=== PATIENT | male | born 1990 | race Caucasian/White ===

== ENCOUNTER 2020-06-12 09:33 | Outpatient (REF) | payer OTHER, SELFPAY | END 2020-06-12 09:34 | disposition home or self-care (01) | LOC: HO.HMGCLDS 09:33 | PROVIDERS: PCP Internal Medicine; Visit Provider Internal Medicine | DX: Z20.828 Contact with and (suspected) exposure to other viral communicable diseases (principal) | CPT/HCPCS: C9803; U0003 ==

== ENCOUNTER 2020-07-20 16:30 | Emergency (ER) | payer OTHER, SELFPAY | END 2020-07-20 16:45 | disposition left against medical advice (07) | LOC: HO.ED 16:44 | PROVIDERS: Emergency Provider Emergency Medicine; PCP Internal Medicine | DX: H57.13 Ocular pain, bilateral (principal) ==

== ENCOUNTER 2021-01-10 11:32 | Outpatient (REF) | payer OTHER, SELFPAY | END 2021-01-10 11:33 | disposition home or self-care (01) | LOC: HO.LAB 11:32 | PROVIDERS: PCP Internal Medicine; Visit Provider Internal Medicine | DX: Z20.822 Contact with and (suspected) exposure to COVID-19 (principal) | CPT/HCPCS: C9803; U0003; U0005 ==

== ENCOUNTER 2021-01-25 05:06 | Emergency (ER) | payer OTHER, SELFPAY ==
[2021-01-25 05:18] VITALS: BP 97/69; PULSE 72; RESP 16; TEMP 36.2; O2SAT 96; BMI 19.1
--- NOTE | 2021-01-25 05:25 | ED_ITS ---
HPI - General Adult General Chief complaint: General Medical Stated complaint: dizzy nausea Time Seen by Provider: 01/25/21 05:25 Source: patient Mode of arrival: ambulatory Limitations: no limitations History of Present Illness HPI narrative: patient with no significant past medical history complaining of not feeling well for 1 day nauseated no vomiting or diarrhea feel dizzy generalized weakness patient was tested for COVID which was negative last week no fever no chills no significant cough or shortness of breath . patient feel everything is spinning Related Data Previous Rx's Medication Instructions Recorded loratadine 10 mg tablet 10 mg PO DAILY #90 tab 12/11/20 meclizine 25 mg PO TID PRN #30 tab 01/25/21 Allergies Allergy/AdvReac Type Severity Reaction Status Date / Time No Known Allergies Allergy Verified 01/25/21 05:46 Review of Systems Review of Systems: Constitutional : No Weight loss, No Fever, No Chills ENT/Mouth : No sore throat, No Rhinorrhea Eyes: No Eye Pain, No Swelling Cardiovascular : No Chest Pain, no palpitations Respiratory : No Cough, No Sputum, no shortness of breath Gastrointestinal : + Nausea, No Vomiting, No Diarrhea, No abdominal Pain, no black stools Genitourinary : No Dysuria, No Urinary Frequency Musculoskeletal : No joint pain, No Myalgias, No Joint Swelling Skin : No Skin Lesions, No rash Neuro : No Weakness, No Numbness, ++Dizziness, No Headache Psych : No Anxiety/Panic, No Depression Heme/Lymph: No Bruising, No Lymphadenopathy Endocrine : No Polyuria, No Polydipsia All other systems reviewed and are negative [facility] Social History Social History Patient Tobacco Use Status: Current everyday Tobacco user Use of substances other than those prescribed or required for medical reasons: Yes Substance Use Type: Marijuana Advance Directives: No Advance Directives Information Provided: No Physical Exam Vital Signs: Vital Signs: Last Vital Signs Temp 97.1 F 01/25/21 05:18 Pulse 80 01/25/21 06:41 Resp 16 01/25/21 06:41 BP 97/54 L 01/25/21 06:41 Pulse Ox 99 01/25/21 06:41 Body Mass Index 19.1 Appearance: Alert. Oriented X3. No acute distress. Eyes: PERRLA, No Nystagmus ENT: Pharynx normal. Oral Mucosa moist Neck: Normal inspection. Neck supple. CVS: Normal heart rate and rhythm. Pulses normal. Respiratory: No respiratory distress. Equal air entry bilateral, no wheezing/rales/rhonchi Abdomen: Soft and nontender. Bowel sounds are present, no mass palpable, no CVA tenderness Skin: Skin warm and dry. Normal skin color. Normal skin turgor. Extremities: No lower extremity edema. No calf tenderness Neuro: Oriented X 3. No motor deficit. No sensory deficit.No cerebellar signs , cranial nerves II-XII intact Medical Decision Making MDM Narrative Medical decision making narrative: patient with dizziness clinically benign positional vertigo lab workup is negative patient feels better after medication and IV hydration will discharge patient home on meclizine Lab Data Lab results reviewed: Yes I reviewed the patient's lab results. Result diagrams: 01/25/21 05:41 01/25/21 05:41 Labs: Lab Results 01/25/21 01/25/21 01/25/21 Range/Units 05:33 05:41 05:41 WBC 7.3 (4.8-10.8) X10*3/uL RBC 5.19 (4.60-5.80) X10*6/uL Hgb 15.9 (14.0-18.0) g/dl Hct 45.1 (42-52) % MCV 86.9 (80-98) fL MCH 30.6 (27.0-33.0) pg MCHC 35.3 (31.0-36.0) g/dl RDW 12.7 (11.0-16.0) % Plt Count 193 (160-400) X10*3/uL MPV 11.1 (9.4-12.4) fL Immature Gran % (Auto) 0.1 (0.0-0.4) % Neut % (Auto) 44.2 L (45-73) % Lymph % (Auto) 43.7 H (20-40) % [place] % (Auto) 7.8 (2-11) % Eos % (Auto) 3.8 (0-4) % Baso % (Auto) 0.4 (0-2) % Lymph # (Auto) 3.2 (1.2-4.9) X10*3/uL [place] # (Auto) 0.6 (0.1-1.2) X10*3/uL Eos # (Auto) 0.3 (0.0-0.4) X10*3/uL Baso # (Auto) 0.0 (0.0-0.2) X10*3/uL Abs Immat Gran (auto) 0.01 (0.00-0.03) X10*3/uL Absolute Neuts (auto) 3.2 (2.0-8.3) X10*3/uL Absolute Nucleated RBC 0.000 (0.0-0.012) X10*3/uL Nucleated RBC % (auto) 0.0 (0.0-0.2) /100WBC Sodium 141 (135-145) mmol/L Potassium 4.0 (3.3-5.1) mmol/L Chloride 106 (96-108) mmol/L Carbon Dioxide 27 (22-29) mmol/L Anion Gap 12 (12-20) BUN 8 L (9-16) mg/dL Creatinine 0.81 (0.5-1.4) mg/dL Estim Creat Clear Calc 105.4 Estimated GFR > 60 POC Glucose 89 (60-115) mg/dL Random Glucose 99 (60-115) mg/dL Calcium 9.5 (8.4-10.2) mg/dL Discharge Plan Discharge Clinical Impression: Benign paroxysmal positional vertigo Qualifiers: Laterality: bilateral Qualified Code(s): H81.13 - Benign paroxysmal vertigo, bilateral Patient Disposition: Home, Self-Care Instructions: Benign Paroxysmal Positional Vertigo (ED) Additional Instructions: care as advised. Take meclizine 1 tablet every 8 hours as needed for severe dizziness. Follow up with PCP Prescriptions: New meclizine 25 mg tablet 25 mg PO TID PRN (Reason: dizziness) Qty: 30 RF: 0 No Action loratadine 10 mg tablet 10 mg PO DAILY Qty: 90 RF: 8
[2021-01-25] MEDS: 0.9 % Sodium Chloride 1,000 ML 999 ML IVCONT (05:45)
[2021-01-25] MEDS: ondansetron HCL 4 MG/2 ML VIAL IVPUSH (05:45)
[2021-01-25 05:46] LABS: Basophils Percent Auto 0.4 % (0-2); Eosinophils Absolute Auto 0.3 X10*3/uL (0.0-0.4); Eosinophils Percent Auto 3.8 % (0-4); Hematocrit 45.1 % (42-52); Hemoglobin 15.9 g/dl (14.0-18.0); Imm Gran Abs Auto 0.01 X10*3/uL (0.00-0.03); Imm Gran Pct Auto 0.1 % (0.0-0.4); Lymphocytes Absolute Auto 3.2 X10*3/uL (1.2-4.9); Lymphocytes Percent Auto 43.7 % (20-40); MANUAL DIFF FLAG NO; Mean Corpuscular HGB Conc 35.3 g/dl (31.0-36.0); Mean Corpuscular Hemoglobin 30.6 pg (27.0-33.0); Mean Corpuscular Volume 86.9 fL (80-98); Mean Platelet Volume 11.1 fL (9.4-12.4); Monocytes Absolute Auto 0.6 X10*3/uL (0.1-1.2); Monocytes Percent Auto 7.8 % (2-11); Neutrophils Absolute Auto 3.2 X10*3/uL (2.0-8.3); Neutrophils Percent Auto 44.2 % (45-73); Platelet Count 193 X10*3/uL (160-400); Red Blood Count 5.19 X10*6/uL (4.60-5.80); Red Cell Distribution Width 12.7 % (11.0-16.0); White Blood Count 7.3 X10*3/uL (4.8-10.8)
[2021-01-25 05:46] LABS: Glucose, Whole Blood 89 mg/dL (60-115)
[2021-01-25 06:33] LABS: Anion Gap 12 (12-20); Blood Urea Nitrogen 8 mg/dL (9-16); Calcium 9.5 mg/dL (8.4-10.2); Carbon Dioxide 27 mmol/L (22-29); Chloride 106 mmol/L (96-108); Creatinine Clr Calc Pharmacy 105.4; Estimated Glomerular Filt Rate > 60; Glucose Random 99 mg/dL (60-115); Sodium 141 mmol/L (135-145)
[2021-01-25 06:41] VITALS: BP 97/54; PULSE 80; RESP 16; O2SAT 99
--- NOTE | 2021-01-25 06:42 | PC.NURSE ---
Pt resting on stretcher in NAD, breathing with ease on RA. Pt denies pain/discomfort, denies nausea but continues to c/o dizziness. Pt VSS. Stretcher in low locked position, rails raised, call iglesias within reach.
[2021-01-25] MEDS: Meclizine HCl 25 MG TABLET 50 MG PO (07:10)
== END 2021-01-25 07:16 | disposition home or self-care (01) ==
PROVIDERS: Emergency Provider Internal Medicine; PCP Internal Medicine
DX: H81.13 Benign paroxysmal vertigo, bilateral (principal)
CPT/HCPCS: 36415; 80048; 82947; 85025; 96361; 96374; 99284; J2405

== ENCOUNTER 2021-04-28 18:10 | Emergency (ER) | payer OTHER, SELFPAY ==
[2021-04-28 18:58] VITALS: BP 108/58; PULSE 72; RESP 14; TEMP 37.2; O2SAT 97; BMI 19.5
== END 2021-04-28 21:01 | disposition left against medical advice (07) ==
PROVIDERS: Emergency Provider Emergency Medicine; PCP Internal Medicine
DX: R42 Dizziness and giddiness (principal); R53.1 Weakness; Z79.899 Other long term (current) drug therapy
CPT/HCPCS: 99281; 99282

== ENCOUNTER 2021-07-12 11:55 | Outpatient (REF) | payer OTHER, SELFPAY ==
[2021-07-12 12:08] LABS: MANUAL DIFF FLAG NO
[2021-07-12 12:54] LABS: Basophils Percent Auto 0.5 % (0-2); Eosinophils Absolute Auto 0.3 X10*3/uL (0.0-0.4); Eosinophils Percent Auto 5.4 % (0-4); Hematocrit 46.7 % (42.0-52.0); Hemoglobin 15.8 g/dl (14.0-18.0); Imm Gran Abs Auto 0.01 X10*3/uL (0.00-0.03); Imm Gran Pct Auto 0.2 % (0.0-0.4); Lymphocytes Absolute Auto 2.2 X10*3/uL (1.2-4.9); Lymphocytes Percent Auto 40.1 % (20-40); Mean Corpuscular HGB Conc 33.8 g/dl (31.0-36.0); Mean Corpuscular Hemoglobin 30.2 pg (27.0-33.0); Mean Corpuscular Volume 89.1 fL (80.0-98.0); Mean Platelet Volume 11.3 fL (9.4-12.4); Monocytes Absolute Auto 0.4 X10*3/uL (0.1-1.2); Monocytes Percent Auto 7.7 % (2-11); Neutrophils Absolute Auto 2.6 x10*3/uL (2.0-8.3); Neutrophils Percent Auto 46.1 % (45-73); Platelet Count 189 X10*3/uL (160-400); Red Blood Count 5.24 X10*6/uL (4.60-5.80); Red Cell Distribution Width 12.3 % (11.0-16.0); White Blood Count 5.6 X10*3/uL (4.8-10.8)
[2021-07-12 13:23] LABS: Alanine Aminotransferase 17 U/L (0-40); Albumin Level 4.4 g/dL (3.5-5.0); Alkaline Phosphatase 69 U/L (39-117); Anion Gap 10 (12-20); Aspartate Amino Transferase 17 U/L (5-37); Bilirubin Total 0.6 mg/dL (0.0-1.0); Blood Urea Nitrogen 11 mg/dL (9-16); Calcium 9.7 mg/dL (8.4-10.2); Carbon Dioxide 30 mmol/L (22-29); Chloride 106 mmol/L (96-108); Cholesterol 171 mg/dL; Estimated Glomerular Filt Rate > 60; Glucose Fasting 105 mg/dL (60-99); HDL Cholesterol 46 mg/dL; LDL Cholesterol Calculated 109 mg/dl; Potassium 4.2 mmol/L (3.3-5.1); Sodium 142 mmol/L (135-145); Total Protein 7.1 g/dL (6.5-8.0); Triglycerides 83 mg/dL
== END 2021-07-12 11:56 | disposition home or self-care (01) ==
LOC: HO.LAB 11:55
PROVIDERS: PCP Internal Medicine; Visit Provider Internal Medicine
DX: Z00.00 Encounter for general adult medical examination without abnormal findings (principal); Z13.0 Encounter for screening for diseases of the blood and blood-forming organs and certain disorders involving the immune mechanism
CPT/HCPCS: 36415; 80053; 80061; 85025

== ENCOUNTER 2021-07-22 10:41 | Emergency (ER) | payer OTHER, SELFPAY ==
[2021-07-22 11:21] VITALS: BP 96/56; PULSE 101; RESP 20; TEMP 37.1; O2SAT 96; BMI 20.3
[2021-07-22 12:19] LABS: COVID-19 Test Negative (Negative)
[2021-07-22 15:26] VITALS: BP 109/61; PULSE 78; RESP 16; TEMP 36.8; O2SAT 97
[2021-07-22] MEDS: Acetaminophen 325 MG TABLET 650 MG PO (16:15)
--- NOTE | 2021-07-22 16:50 | ED.GENADULT ---
HPI - General Adult General Chief complaint: Upper Respiratory Symptoms Stated complaint: headache,body aches,dizzy Time Seen by Provider: 07/22/21 15:37 History of Present Illness HPI narrative: Patient complains of mild headache body aches felt dizzy earlier but no dizziness now no chest pain no shortness of breath no fever Related Data Previous Rx's Medication Instructions Recorded loratadine 10 mg tablet 10 mg PO DAILY #90 tab 12/11/20 meclizine 25 mg tablet 25 mg PO TID PRN #30 tab 04/26/21 Allergies Allergy/AdvReac Type Severity Reaction Status Date / Time No Known Allergies Allergy Verified 07/22/21 11:21 Review of Systems Review of Systems: Positive for runny nose body aches headache resolved dizziness Negatives are no fever no chills no chest pain no shortness of breath no fainting no feeling faint no difficulty breathing or swallowing no abdominal pain no nausea vomiting or diarrhea Yes all other systems are reviewed and are negative PMFSH Past Medical History Source: nursing notes reviewed Medical History (Updated 07/23/21 @ 00:01 by Jeovany David) Vertigo Surgical History History of appendectomy History of inguinal hernia repair Family History Family History (Updated 07/09/21 @ 13:44 by YIN Butler) Mother No problems noted. Father Mental health disorder Substance use disorder Social History Social History Housing: Apartment Patient Tobacco Use Status: Current everyday Tobacco user Tobacco use type: Cigarette Cigarettes Per Day: 7 e-Cigarette/Vaping Use: Never Used Second Hand Smoke Exposure: No Substance Use Type: Marijuana Advance Directives: No Advance Directives Information Provided: Yes Current occupational status: unemployed Cognitive needs: No Hearing needs: No Vision needs: No Physical Exam Vital Signs: Vital Signs: Last Vital Signs Temp 98.2 F 07/22/21 15:26 Pulse 78 07/22/21 15:26 Resp 16 07/22/21 15:26 BP 109/61 07/22/21 15:26 Pulse Ox 97 07/22/21 15:26 BMI result Body Mass Index 20.3 General appearance is no acute distress Eyes no redness no discharge The sinuses nontender The neck is supple The chest is clear to auscultation bilateral Extremities full range of motion x4 Course Course Course Narrative: Well-appearing patient with a resolved episode of dizziness at home, no dizziness here no faintness or feeling faint no shortness of breath no chest pain, eating and drinking normally, negative COVID test today is discharged Medical Decision Making Lab Data Labs: Lab Results 07/22/21 Range/Units 11:25 COVID-19 (MOHSEN) Negative (Negative) COVID-19 Clin Com See Note Discharge Plan Discharge Clinical Impression: Acute viral syndrome Patient Disposition: Home, Self-Care Additional Instructions: Your COVID test was negative You are very well appearing and her physical exam and vital signs were okay Drink plenty of fluids, Tylenol or Motrin as needed Return any time any worse condition or any concerns Prescriptions: No Action loratadine 10 mg tablet 10 mg PO DAILY Qty: 90 RF: 8 meclizine 25 mg tablet 25 mg PO TID PRN (Reason: dizziness) Qty: 30 RF: 0 Interventions: ED Discharge Assessment Last Done: 07/22/21 17:05 Discharge Date/Time: 07/22/21 17:05
== END 2021-07-22 17:05 | disposition home or self-care (01) ==
PROVIDERS: Emergency Provider Emergency Medicine; PCP Internal Medicine
DX: B34.9 Viral infection, unspecified (principal); Z20.822 Contact with and (suspected) exposure to COVID-19
CPT/HCPCS: 36415; 87635; 99283; 99284

== ENCOUNTER 2021-11-12 14:16 | Emergency (ER) | payer OTHER, SELFPAY ==
[2021-11-12 14:22] VITALS: BP 109/60; PULSE 82; RESP 18; TEMP 37.1; O2SAT 97; BMI 19.5
--- NOTE | 2021-11-12 15:25 | ED.GENADULT ---
HPI - General Adult General Chief complaint: General Medical Stated complaint: nausea body aches Time Seen by Provider: 11/12/21 15:25 Source: patient Mode of arrival: ambulatory Limitations: no limitations History of Present Illness HPI narrative: Patient is a 31 year old male presenting to the emergency department today feeling generally unwell. Patient states that since yesterday he has felt generally unwell and run down. Patient denies any dizziness, lightheadedness, abdominal pain, nausea, vomiting, blurry vision, double vision, loss of vision, chest pain, difficulty breathing, shortness of breath, back pain, night sweats, pain with urination, increased urinary frequency, increased urinary urgency, blood in his urine or stool, syncope or a near syncopal episode, recent trauma or falls, bowel incontinence, bladder incontinence, bowel retention, bladder retention, or any other complaints at this time. Onset (ago): day(s) (1) Severity: mild Severity scale (1-10): 3 Quality: dull Pain Consistency: constant Relieving factors: none Exacerbating factors: none Associated symptoms: fever/chills Treatments prior to arrival: none Related Data Previous Rx's Medication Instructions Recorded loratadine 10 mg tablet 10 mg PO DAILY #90 tab 12/11/20 meclizine 25 mg tablet 25 mg PO TID PRN #30 tab 04/26/21 cephalexin 250 mg capsule 250 mg PO Q6H #20 cap 08/24/21 Allergies Allergy/AdvReac Type Severity Reaction Status Date / Time No Known Allergies Allergy Verified 11/12/21 14:22 Review of Systems Constitutional: Constitutional: Reports no additional constitutional complaints, Reports body ache(s), Reports chills, Reports fever(s) and Denies night sweats Eyes: Eyes: Reports no additional eye complaints, Denies blurry vision, Denies change in vision, Denies diplopia, Denies eye discharge, Denies loss of vision and Denies eye pain ENT: Denies dizziness Cardiovascular: Cardiovascular: Reports no additional cardiovascular complaints, Denies chest pain, Denies lightheadedness, Denies Loss of Consciousness and Denies dyspnea Respiratory: Respiratory: Reports no additional respiratory complaints and Denies dyspnea Gastrointestinal: Gastrointestinal: Reports no additional gastrointestinal complaints, Denies abdominal pain, Denies melena, Denies hematochezia, Denies change in bowel habits and Denies change in stool character Genitourinary: Genitourinary: Reports no additional male genitourinary complaints, Denies hematuria, Denies oliguria, Denies difficulty urinating, Denies dysuria, Denies urinary frequency, Denies urinary hesitancy, Denies urinary incontinence and Denies urinary urgency Musculoskeletal: Musculoskeletal: Reports no additional musculoskeletal complaints, Denies numbness and Denies tingling Neurologic: Denies dizziness, Denies loss of vision, Denies numbness and Denies tingling Psychiatric: Psychiatric: Reports no additional psychiatric complaints Endocrine: Endocrine: Reports no additional endocrine complaints Hematologic/Lymphatic: Hematologic/Lymphatic: Reports no additional hematologic/lymphatic complaints Allergic/Immunologic: Allergic/Immunologic: Reports no additional allergic/immunologic complaints [facility] Past Medical History Attestation statement: The following information was validated with the patient. Source: old records reviewed Medical History Vertigo Surgical History History of appendectomy History of inguinal hernia repair Family History Family History Mother No problems noted. Father Mental health disorder Substance use disorder Social History Social History Housing: Apartment Patient Tobacco Use Status: Current everyday Tobacco user Tobacco use type: Cigarette Cigarettes Per Day: 5 e-Cigarette/Vaping Use: Never Used Second Hand Smoke Exposure: No Substance Use Type: Marijuana Advance Directives: No Advance Directives Information Provided: No service: No Current occupational status: unemployed Cognitive needs: No Hearing needs: No Vision needs: No Physical Exam ED Vital Signs: Vital Signs - 24 hr 11/12/21 14:22 Temperature 98.7 F Pulse Rate 82 Respiratory Rate 18 Blood Pressure 109/60 Pulse Oximetry 97 BMI result Body Mass Index 19.5 Const General: cooperative, no acute distress, alert and awake Nutritional Appearance: well nourished Orientation/consciousness: patient oriented x3 Limitations: no limitations HENMT Head: Yes normal to inspection and Yes atraumatic Ears: hearing grossly normal bilaterally and external ears normal General nose exam: Normal external nose present, no nasal discharge noted and no epistaxis Face and sinus: Yes normal facial exam, No abrasion and No laceration Mouth: Normal oral and palatal mucosa present, no drooling and no muffled voice Eyes General: appearance normal, both eyes and all related structures Periorbital: periorbital findings normal Eyelids: Yes eyelids normal Conjunctivae: conjunctivae normal Pupils: Equal, round and reactive pupils present EOM: EOMs intact bilaterally Neck Neck: Yes normal visual inspection, Yes full ROM and Yes no lymphadenopathy Chest Chest palpation & inspection: normal inspection of the chest Resp Effort & Inspection: normal respiratory effort and able to speak in complete sentences Auscultation: clear to auscultation bilaterally Cardio Rate: regular rate Rhythm: regular rhythm GI Inspection: Yes normal to inspection Neuro General: patient oriented x3 and moves all extremities Cranial nerves: Yes Equal, round and reactive pupils present Cognition (Neuro): normal cognition Motor exam (neuro): 5/5 motor strength present throughout Sensory Exam: Normal double simultaneous stimulation for sensation Coordination: [id number] test normal Extrem General: Yes normal to inspection, Yes full ROM and Yes capillary refill normal Psych Appearance: grossly normal Mental Status: mental status grossly normal Affect: normal affect Attitude: cooperative Thought process: Normal thought process present Thought content: Normal thought content present Insight: Good insight present (Psych) Medical Decision Making MDM Narrative Medical decision making narrative: Patient is a 31 year old male presenting to the emergency department today feeling generally unwell. Patient's physical exam was unremarkable. Patient's rapid Influenza was positive. I explained my physical exam findings as well as all test results to the patient. I answered all questions asked by the patient. I stressed the importance of the patient taking his medication as prescribed. I stressed the importance of the patient following up with his primary care provider. I stressed the importance of the patient returning to the emergency department immediately if his symptoms were to worsen or if he were to develop any dizziness, shortness of breath, difficulty breathing, chest pain, blurry vision, loss of vision, nausea, vomiting, abdominal pain, fever, chills, back pain, or any other complaints. Patient verbalized agreement and understanding with this treatment plan and discharge. Differential Diagnosis Differential Diagnosis: viral illness, influenza, COVID-19 Medical Records Medical records reviewed: Yes I reviewed the patient's medical records. Lab Data Lab results reviewed: Yes I reviewed the patient's lab results. Labs: Lab Results 11/12/21 11/12/21 Range/Units 15:24 15:24 COVID-19 (MOHSEN) Negative (Negative) COVID-19 Clin Com See Note Influenza Type A (UZAIR) Positive A (Negative) Influenza Type B (UZAIR) Negative (Negative) Influenza A & B Note See Note Discharge Plan Discharge Clinical Impression: Influenza Patient Disposition: Home, Self-Care Instructions: Influenza (DC) Additional Instructions: Take Tylenol or Ibuprofen to help combat body aches and fever. Follow up with your primary care provider. Return to the emergency department immediately if your symptoms worsen or if you develop any dizziness, shortness of breath, difficulty breathing, chest pain, blurry vision, loss of vision, nausea, vomiting, abdominal pain, fever, chills, back pain, or any other complaints. Prescriptions: No Action loratadine 10 mg tablet 10 mg PO DAILY Qty: 90 8RF meclizine 25 mg tablet 25 mg PO TID PRN (Reason: dizziness) Qty: 30 0RF cephalexin 250 mg capsule 250 mg PO Q6H Qty: 20 0RF Referrals: Ignacio Hurley MD [Primary Care Provider] - (Follow up with your PCP. ) Stand Alone Forms: Work/School Release Print Language: Icelandic
[2021-11-12 16:02] LABS: IDNOW Serial# 55D5AD1C
[2021-11-12 16:03] LABS: COVID-19 Test Negative (Negative); IDNOW Serial# 16C4AD1C; Influenza A Positive (Negative); Influenza B2 Negative (Negative)
[2021-11-12 18:43] LABS: Strep A Nucleic Acid Negative (Negative)
== END 2021-11-12 16:12 | disposition home or self-care (01) ==
PROVIDERS: Emergency Provider Emergency Medicine; PCP Internal Medicine
DX: J10.1 Influenza due to other identified influenza virus with other respiratory manifestations (principal); M79.10 Myalgia, unspecified site; F17.210 Nicotine dependence, cigarettes, uncomplicated; Z20.822 Contact with and (suspected) exposure to COVID-19; Z79.899 Other long term (current) drug therapy; Z71.6 Tobacco abuse counseling
CPT/HCPCS: 36415; 87502; 87635; 87651; 99283

== ENCOUNTER 2022-02-27 11:20 | Outpatient (REF) | payer OTHER, SELFPAY | END 2022-02-27 11:21 | disposition home or self-care (01) | LOC: HO.LAB 11:20 | PROVIDERS: PCP Internal Medicine; Visit Provider Internal Medicine | DX: N39.0 Urinary tract infection, site not specified (principal) | CPT/HCPCS: 87086 ==

== ENCOUNTER 2022-07-16 22:48 | Emergency (ER) | payer OTHER, SELFPAY ==
--- NOTE | ~2022-07-16 | XR_ITS ---
EXAMINATION: 1. LEFT ANKLE. 2. LEFT FOOT. CLINICAL INFORMATION: Left ankle pain. Foot pain. COMPARISON: None TECHNIQUE: 1. Left ankle. 4 views 2. Left foot. 3 views. FINDINGS: 1. Left ankle. No fracture. No dislocation. Ankle mortise is congruent. No soft tissue abnormality. 2. Left foot. No fracture. No dislocation. Bone and joint are normal. No soft tissue abnormality. XR/XR ankle LT min 3V IMPRESSION: 1. Left ankle. Normal. 2. Left foot. Normal.
--- NOTE | ~2022-07-16 | XR_ITS ---
EXAMINATION: 1. LEFT ANKLE. 2. LEFT FOOT. CLINICAL INFORMATION: Left ankle pain. Foot pain. COMPARISON: None TECHNIQUE: 1. Left ankle. 4 views 2. Left foot. 3 views. FINDINGS: 1. Left ankle. No fracture. No dislocation. Ankle mortise is congruent. No soft tissue abnormality. 2. Left foot. No fracture. No dislocation. Bone and joint are normal. No soft tissue abnormality. XR/XR foot LT 2V IMPRESSION: 1. Left ankle. Normal. 2. Left foot. Normal.
--- NOTE | 2022-07-16 23:01 | ED_ITS ---
HPI - Extremity Problem General Chief complaint: Extremity Injury, Lower <KRUPA Rivera - Last Filed: 07/16/22 23:02> Stated complaint: thinks broke foot <KRUPA Rivera - Last Filed: 07/16/22 23:02> Time Seen by Provider: 07/17/22 00:43 <KRUPA Rivera - Last Filed: 07/16/22 23:02> Source: patient <Thalia Shelby NP - Last Filed: 07/17/22 02:02> Mode of arrival: ambulatory <Thalia Shelby NP - Last Filed: 07/17/22 02:02> Limitations: no limitations <Thalia Shelby NP - Last Filed: 07/17/22 02:02> History of Present Illness HPI Narrative: 32-year-old male presents for left foot pain that started today after standing. He states that this pain radiates from the bottom of the foot to his ankle. He does not describe any injury and has no swelling or bruising <Thalia Shelby NP - Last Filed: 07/17/22 02:02> MD Complaint: extremity pain <Thalia Shelby NP - Last Filed: 07/17/22 02:02> Onset (ago): hour(s) (Hours prior to arrival) <Thalia Shelby NP - Last Filed: 07/17/22 02:02> Pain Consistency: constant <Thalia Shelby NP - Last Filed: 07/17/22 02:02> Location: left and lower extremity <Thalia Shelby NP - Last Filed: 07/17/22 02:02> Severity scale (1-10): 10 <Thalia Shelby NP - Last Filed: 07/17/22 02:02> Quality: aching <Thalia Shelby NP - Last Filed: 07/17/22 02:02> Relieving factors: nothing <Thalia Shelby NP - Last Filed: 07/17/22 02:02> Exacerbating factors: range of motion, weight bearing, walking and palpation <Thalia Shelby NP - Last Filed: 07/17/22 02:02> Associated symptoms: denies other symptoms <Thalia Shelby NP - Last Filed: 07/17/22 02:02> Related Data Home medications: Previous Rx's Medication Instructions Recorded loratadine 10 mg tablet 10 mg PO DAILY #90 tabs 12/11/20 meclizine 25 mg tablet 25 mg PO TID PRN dizziness #30 tabs 04/26/21 <KRUPA Rivera - Last Filed: 07/16/22 23:02> Allergies/Adverse reactions: Allergies Allergy/AdvReac Type Severity Reaction Status Date / Time No Known Allergies Allergy Verified 07/10/22 13:08 <KRUPA Rivera - Last Filed: 07/16/22 23:02> Review of Systems Review of Systems: Constitutional: No Fever, No Chills Cardiovascular: No Chest Pain, No SOB Respiratory: No Cough, No Dyspnea Gastrointestinal: No Nausea, No Vomiting, No Diarrhea, No abdominal Pain Musculoskeletal: positive left ankle pain, No Myalgias, No Joint Swelling Skin: No Skin lacerations, No rash Neuro: No Weakness, No Numbness, No Paresthesias <Thalia Shelby NP - Last Filed: 07/17/22 02:02> Yes all other systems are reviewed and are negative <Thalia Shelby NP - Last Filed: 07/17/22 02:02> [facility] Past Medical History Attestation statement: The following information was validated with the patient. <Thalia Shelby NP - Last Filed: 07/17/22 02:02> Medical History: Medical History Vertigo <KRUPA Rivera - Last Filed: 07/16/22 23:02> Surgical History: Surgical History History of appendectomy History of inguinal hernia repair <KRUPA Rivera - Last Filed: 07/16/22 23:02> Family History Family History: Family History Mother No problems noted. Father Mental health disorder Substance use disorder <KRUPA Rivera - Last Filed: 07/16/22 23:02> Social History Social History: Social History Housing: Apartment Patient Tobacco Use Status: Current everyday Tobacco user Tobacco use type: Cigarette Cigarettes Per Day: 5 e-Cigarette/Vaping Use: Never Used Second Hand Smoke Exposure: No Substance Use Type: Marijuana Advance Directives: No Advance Directives Information Provided: Yes service: No Current occupational status: unemployed Cognitive needs: No Hearing needs: No Vision needs: No <KRUPA Rivera - Last Filed: 07/16/22 23:02> Physical Exam Vital Signs: Vital Signs: Last Vital Signs Temp 98.1 F 07/16/22 23:02 Pulse 80 07/16/22 23:02 Resp 18 07/16/22 23:02 BP 111/65 07/16/22 23:02 BMI result Body Mass Index 18.8 <KRUPA Rivera - Last Filed: 07/16/22 23:02> Vital Signs: Last Vital Signs Temp 98.1 F 07/16/22 23:02 Pulse 80 07/16/22 23:02 Resp 18 07/16/22 23:02 BP 111/65 07/16/22 23:02 BMI result Body Mass Index 18.8 <hTalia Shelby NP - Last Filed: 07/17/22 02:02> Appearance: Alert. Oriented X3. No acute distress. Eyes: Pupils equal, round and reactive to light. ENT: Pharynx normal. Neck: Normal inspection. Neck supple. CVS: Normal heart rate and rhythm. Pulses normal. Respiratory: No respiratory distress. Breath sounds normal. Abdomen: Soft and nontender. Skin: Skin warm and dry. Normal skin color. Normal skin turgor. Extremities: No bruising swelling or visual abnormality to the left foot. Diffusely tender to the entire foot and ankle. Neuro: No motor deficit. No sensory deficit. Cranial nerves 2-12 intact. <Thalia Shelby NP - Last Filed: 07/17/22 02:02> Course Course Course Narrative: 2300 32 year old male presents w/ severe left foot pain patient tells me he was just standing there and heard a crack followed by severe pain and swelling. No reported trauma. Pain 10/10. having difficulties walking. No hx of osteoperosis. Denies numbness tingling PE pain with palpation throughout entire foot, NV intact Plan- imaging <KRUPA Rivera - Last Filed: 07/16/22 23:02> 2300 32 year old male presents w/ severe left foot pain patient tells me he was just standing there and heard a crack followed by severe pain and swelling. No reported trauma. Pain 10/10. having difficulties walking. No hx of osteoperosis. Denies numbness tingling PE pain with palpation throughout entire foot, NV intact Plan- imaging 32-year-old male presents with left foot pain that started suddenly while he was standing. Physical exam indicates diffuse pain throughout his entire foot with minimal palpation. Patient states to have 10/10 pain with just the lightest touch. He does not have any bruising, erythema, or malformations to the foot. He has brisk capillary refill and equal pulses. Imaging completed while he was in the emergency department waiting room which was negative for acute findings requiring emergent intervention. The pain reported is out of proportion to the description of injury. I placed the patient in Kendall wrap and crutches, patient requested a work note. He did refer patient back to his primary care physician. Patient verbalized understanding of and agrees plan of care discharge home. Verbalized understanding of signs and symptoms indicating need for emergent intervention. <Thalia Shelby NP - Last Filed: 07/17/22 02:02> Medical Decision Making Differential Diagnosis Differential Diagnoses: The differential diagnosis associated with the presentation includes <Thalia Shelby NP - Last Filed: 07/17/22 02:02> Fracture, dislocation, effusion, tendon and ligament injury <Thalia Shelby NP - Last Filed: 07/17/22 02:02> Independent Interpretation I performed an independent interpretation of an: Plain X-Ray <Thalia Shelby NP - Last Filed: 07/17/22 02:02> Radiology Impression Discussion of test interpretation with radiology: I have reviewed the radiologist's reading. <Thalia Shelby NP - Last Filed: 07/17/22 02:02> Radiologist Impression: EXAMINATION: 1. LEFT ANKLE. 2. LEFT FOOT. CLINICAL INFORMATION: Left ankle pain. Foot pain.? COMPARISON: None? TECHNIQUE: 1. Left ankle. 4 views 2. Left foot. 3 views.? FINDINGS: 1. Left ankle. No fracture. No dislocation. Ankle mortise is congruent. No soft tissue abnormality. 2. Left foot. No fracture. No dislocation. Bone and joint are normal. No soft tissue abnormality.? XR/XR foot LT 2V IMPRESSION: 1.? Left ankle. Normal. 2.? Left foot. Normal. <Thalia Shelby NP - Last Filed: 07/17/22 02:02> Discharge Plan Discharge Clinical Impression: Ankle sprain and strain <KRUPA Rivera - Last Filed: 07/16/22 23:02> Patient Disposition: Home, Self-Care <KRUPA Rivera - Last Filed: 07/16/22 23:02> Instructions: Crutch Instructions (ED), R.I.C.E. Treatment (ED), Ankle Strain (ED) <KRUPA Rivera - Last Filed: 07/16/22 23:02> Additional Instructions: You were evaluated for left foot pain. X-rays are negative for acute findings requiring emergent intervention. Your injuries are consistent with a sprain. Please use Kendall wrap as needed for comfort. Use crutches as needed for ambulation. Follow-up with primary care physician for further evaluation. Alternate Tylenol 650 mg every 6 hours and Motrin 600 mg every 6 hours as needed for pain management. Write down what time you take these medications to prevent accidental overdose. Rest ice and elevate the extremity. Thank you for choosing this emergency department for evaluation. Please follow-up with primary care physician as needed. Return to the emergency department for any new, concerning, or worsening symptoms. <KRUPA Rivera - Last Filed: 07/16/22 23:02> Prescriptions: No Action loratadine 10 mg tablet 10 mg PO DAILY Qty: 90 8RF meclizine 25 mg tablet 25 mg PO TID PRN (Reason: dizziness) Qty: 30 0RF <KRUPA Rivera - Last Filed: 07/16/22 23:02> Stand Alone Forms: Work/School Release <KRUPA Rivera - Last Filed: 07/16/22 23:02> Interventions: ED Discharge Assessment Last Done: 07/17/22 00:57 <KRUPA Rivera - Last Filed: 07/16/22 23:02> Discharge Date/Time: 07/17/22 00:58 <KRUPA Rivera - Last Filed: 07/16/22 23:02>
[2022-07-16 23:02] VITALS: BP 111/65; PULSE 80; RESP 18; TEMP 36.7; BMI 18.8
--- NOTE | 2022-07-17 00:42 | ED_ITS ---
HPI - Extremity Injury (Lower) General Chief Complaint: Extremity Injury, Lower Stated Complaint: thinks broke foot Time Seen by Provider: 07/17/22 00:43 Source: patient Limitations: no limitations History of Present Illness MD complaint: ankle injury and foot injury Related Data Previous Rx's Medication Instructions Recorded loratadine 10 mg tablet 10 mg PO DAILY #90 tabs 12/11/20 meclizine 25 mg tablet 25 mg PO TID PRN dizziness #30 tabs 04/26/21 Allergies Allergy/AdvReac Type Severity Reaction Status Date / Time No Known Allergies Allergy Verified 07/10/22 13:08 [facility] Past Medical History Medical History Vertigo Surgical History History of appendectomy History of inguinal hernia repair Family History Family History Mother No problems noted. Father Mental health disorder Substance use disorder Social History Social History Housing: Apartment Patient Tobacco Use Status: Current everyday Tobacco user Tobacco use type: Cigarette Cigarettes Per Day: 5 e-Cigarette/Vaping Use: Never Used Second Hand Smoke Exposure: No Substance Use Type: Marijuana Advance Directives: No Advance Directives Information Provided: Yes service: No Current occupational status: unemployed Cognitive needs: No Hearing needs: No Vision needs: No Physical Exam Vital Signs: Vital Signs: Last Vital Signs Temp 98.1 F 07/16/22 23:02 Pulse 80 07/16/22 23:02 Resp 18 07/16/22 23:02 BP 111/65 07/16/22 23:02 BMI result Body Mass Index 18.8 Medical Decision Making Differential Diagnosis Differential Diagnoses: The differential diagnosis associated with the presentation includes Fracture, dislocation, effusion, tendon and ligament injury Independent Interpretation I performed an independent interpretation of an: Plain X-Ray Radiology Impression Discussion of test interpretation with radiology: I have reviewed the radiologist's reading. Radiologist Impression: EXAMINATION: 1. LEFT ANKLE. 2. LEFT FOOT. CLINICAL INFORMATION: Left ankle pain. Foot pain.? COMPARISON: None? TECHNIQUE: 1. Left ankle. 4 views 2. Left foot. 3 views.? FINDINGS: 1. Left ankle. No fracture. No dislocation. Ankle mortise is congruent. No soft tissue abnormality. 2. Left foot. No fracture. No dislocation. Bone and joint are normal. No soft tissue abnormality.? XR/XR foot LT 2V IMPRESSION: 1.? Left ankle. Normal. 2.? Left foot. Normal. Discharge Plan Discharge Clinical Impression: Ankle sprain and strain Patient Disposition: Home, Self-Care Instructions: Crutch Instructions (ED), R.I.C.E. Treatment (ED), Ankle Strain (ED) Prescriptions: No Action loratadine 10 mg tablet 10 mg PO DAILY Qty: 90 8RF meclizine 25 mg tablet 25 mg PO TID PRN (Reason: dizziness) Qty: 30 0RF Stand Alone Forms: Work/School Release
== END 2022-07-17 00:58 | disposition home or self-care (01) ==
PROVIDERS: Emergency Provider Emergency Medicine; PCP Internal Medicine
DX: S93.402A Sprain of unspecified ligament of left ankle, initial encounter (principal); M25.572 Pain in left ankle and joints of left foot; X50.1XXA Overexertion from prolonged static or awkward postures, initial encounter; Y93.9 Activity, unspecified; Y92.9 Unspecified place or not applicable; Y99.9 Unspecified external cause status; Z79.899 Other long term (current) drug therapy; F17.210 Nicotine dependence, cigarettes, uncomplicated; Z71.6 Tobacco abuse counseling
CPT/HCPCS: 73610; 73620; 99282; 99283

== ENCOUNTER 2022-08-06 12:35 | Outpatient (REF) | payer OTHER, SELFPAY ==
[2022-08-06 12:50] LABS: MANUAL DIFF FLAG NO
[2022-08-06 13:11] LABS: Basophils Percent Auto 0.3 % (0-2); Eosinophils Absolute Auto 0.2 X10*3/uL (0.0-0.4); Eosinophils Percent Auto 2.5 % (0-4); Hematocrit 44.5 % (42.0-52.0); Hemoglobin 15.5 g/dl (14.0-18.0); Imm Gran Abs Auto 0.02 X10*3/uL (0.00-0.03); Imm Gran Pct Auto 0.3 % (0.0-0.4); Lymphocytes Absolute Auto 1.7 X10*3/uL (1.2-4.9); Lymphocytes Percent Auto 28.6 % (20-40); Mean Corpuscular HGB Conc 34.8 g/dl (31.0-36.0); Mean Platelet Volume 10.7 fL (9.4-12.4); Monocytes Absolute Auto 0.4 X10*3/uL (0.1-1.2); Monocytes Percent Auto 6.1 % (2-11); Neutrophils Absolute Auto 3.8 x10*3/uL (2.0-8.3); Neutrophils Percent Auto 62.2 % (45-73); Platelet Count 222 X10*3/uL (160-400); Red Cell Distribution Width 12.6 % (11.0-16.0); White Blood Count 6.1 X10*3/uL (4.8-10.8)
[2022-08-06 13:23] LABS: Appearance Urine Clear; Color Urine Yellow; Glucose Urine UA Negative (Negative); Leukocyte Esterase Urine Negative (Negative); Nitrite Urine Negative (Negative); Specific Gravity - Urine <= 1.005 (1.005-1.025); Urine Blood Negative (Negative); Urine Ketones Negative (Negative); Urine Protein Negative (Neg-Trace)
[2022-08-06 14:31] LABS: Alanine Aminotransferase 15 U/L (0-40); Albumin Level 4.5 g/dL (3.5-5.0); Alkaline Phosphatase 82 U/L (39-117); Anion Gap 13 (12-20); Aspartate Amino Transferase 15 U/L (5-37); Bilirubin Total 0.3 mg/dL (0.0-1.0); Blood Urea Nitrogen 6 mg/dL (9-16); Calcium 9.9 mg/dL (8.4-10.2); Carbon Dioxide 31 mmol/L (22-29); Chloride 103 mmol/L (96-108); Cholesterol 164 mg/dL; Estimated Glomerular Filt Rate > 60; Glucose Fasting 97 mg/dL (60-99); HDL Cholesterol 52 mg/dL; LDL Cholesterol Calculated 93 mg/dl; Sodium 143 mmol/L (135-145); Total Protein 7.6 g/dL (6.5-8.0); Triglycerides 95 mg/dL
[2022-08-08 15:22] LABS: Venous Lead <1.0 mcg/dL (<3.5)
== END 2022-08-06 12:36 | disposition home or self-care (01) ==
LOC: HO.LAB 12:35
PROVIDERS: PCP Internal Medicine; Visit Provider Internal Medicine
DX: Z13.9 Encounter for screening, unspecified (principal); Z77.011 Contact with and (suspected) exposure to lead; E78.5 Hyperlipidemia, unspecified; N39.0 Urinary tract infection, site not specified
CPT/HCPCS: 36415; 80053; 80061; 81003; 83655; 85025

== ENCOUNTER 2022-10-26 13:25 | Outpatient (REF) | payer OTHER, SELFPAY ==
[2022-10-26 16:01] LABS: Influenza A PCR NEGATIVE (Negative); Influenza B PCR NEGATIVE (Negative); Resp Syncy Virus RNA Qual PCR NEGATIVE (Negative); SARS COV2 PCR INHOUSE NEGATIVE (Negative)
[2022-10-26 16:33] LABS: Monotest Negative (Negative)
== END 2022-10-26 13:26 | disposition home or self-care (01) ==
LOC: HO.HMGCLDS 13:25
PROVIDERS: PCP Internal Medicine; Visit Provider Physician Assistant Medical
DX: Z20.828 Contact with and (suspected) exposure to other viral communicable diseases (principal); R09.89 Other specified symptoms and signs involving the circulatory and respiratory systems
CPT/HCPCS: 0241U; 36415; 86308

== ENCOUNTER 2022-10-26 14:05 | Outpatient (REF) | payer OTHER, SELFPAY | END 2022-10-26 14:06 | disposition home or self-care (01) | LOC: HO.LAB 14:05 | PROVIDERS: Visit Provider Physician Assistant Medical | DX: Z13.89 Encounter for screening for other disorder (principal) ==

== ENCOUNTER 2022-12-27 11:07 | Outpatient (REF) | payer OTHER, SELFPAY ==
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
== END 2022-12-27 11:08 | disposition home or self-care (01) ==
LOC: HO.XRAY 11:07
PROVIDERS: PCP Internal Medicine; Visit Provider Internal Medicine
DX: M54.2 Cervicalgia (principal); M54.9 Dorsalgia, unspecified
CPT/HCPCS: 72040; 72100

== ENCOUNTER 2023-02-14 14:13 | Outpatient (AMB) | payer OTHER, SELFPAY ==
--- NOTE | 2023-02-14 14:15 | A.OFFPC_ITS ---
Vital Signs 02/14/23 14:17 Height 5 ft 7 in Weight 124 lb 4 oz BMI 19.5 BP 120/70 Blood Pressure Location Lt brachial Position Sitting Pulse 65 Pulse Source Pulse Oximeter Pulse Oximetry (%) 98 Oxygen Delivery Method Room Air Intake Visit Reasons: Sinus infection for the past 3 weeks? Intake Note: Patient is here today for sinus infection for the past 3 weeks. Symptoms of throat pain, leaking of ears, headaches, body aches and weakness. Cooker Soda Required: No Procurement Accountant: Not Required per policy Accompanied by: Self / Same As Patient Allergies No Known Allergies Allergy (Verified 02/14/23 14:16) Tobacco use date assessed: 02/14/23 Dental Screening Dental Screen Date: 02/14/23 Did you have a dental visit in the last 12 months?: No Did you have a dental problem in the last 6 months where you did not have access to dental care?: No Was dental information given to patient?: No HPI Sinus infection for the past 3 weeks? HPI Details sinus pressure for 2 weeks PFSH Medical History Vertigo Surgical History History of appendectomy History of inguinal hernia repair Family History Mother No problems noted. Father Mental health disorder Substance use disorder Social History Housing: Apartment Patient Tobacco Use Status: Current everyday Tobacco user Tobacco use type: Cigarette Cigarettes Per Day: 5 e-Cigarette/Vaping Use: Never Used Second Hand Smoke Exposure: Yes Substance Use Type: Marijuana service: No Current occupational status: employed Cognitive needs: No Hearing needs: No Vision needs: No Questionnaire PHQ-9 Over the last 2 weeks, how often have you been bothered by any of the following problems? Depression Screening Interpretation: Negative Source: Developed by Drs. Jesus Mcpherson, Norma Dejesus, Morales Dior and colleagues, with an educational gianluca from [employer]. Thrive Questionnaire Date Thrive assessed: 02/14/23 I am a: Patient What is your living situation today?: I have a steady place to live Within the past 12 months, did the food you bought not last and you didn't have the money to get more?: Never true Within the past 12 months, did you worry whether your food would run out before you got money to buy more?: Never true Do you have trouble paying for medicines?: No Do you have trouble getting transportation to medical appointments?: No Do you have trouble paying your heating and electricity bill?: No Do you have trouble taking care of your child, family member or friend?: No Do you have trouble with day-to-day activities such as bathing, preparing meals, shopping, managing finances, etc.?: No Are you currently unemployed and looking for a job?: No Are you interested in more education?: No Currently or been in a relationship where the following occur: no concerns reported AUDIT C Alcohol Use Questionnaire (AUDIT-C) 1. How often do you have a drink containing alcohol?: Monthly or less 2. How many drinks containing alcohol do you have on a typical day when you are drinking?: 1 or 2 Total Score: 1 FIONA-7 AMB Questionnaire FIONA-7 Date FIONA - 7 assessed: 02/14/23 Feeling nervous, anxious, or on edge: 0 = Not at all Not being able to stop or control worryin = Not at all Worrying too much about different things: 0 = Not at all Trouble relaxin = Not at all Being so restless that it is hard to sit still: 0 = Not at all Becoming easily annoyed or irritable: 0 = Not at all Feeling afraid as if something awful might happen: 0 = Not at all Total FIONA-7 score (0-4 normal; 5-9 mild; 10-14 moderate; 15-21 severe): 0 Source: Developed by Drs. Jesus Mcpherson, Norma Dejesus, Morales Dior and colleagues, with an educational gianluca from [employer]. Review of Systems Const Denies chills, Denies headache(s) and Denies weight loss ENT Denies headache(s) Card Denies chest pain, Denies syncope, Denies irregular heart rhythm and Denies dyspnea Resp Denies chest congestion, Denies cough and Denies dyspnea GI Denies abdominal pain, Denies change in stool character, Denies nausea and Denies vomiting Musc Denies deformity and Denies joint swelling Neuro Denies syncope and Denies headache(s) Physical exam (Primary Care) Vital Signs: Last Vital Signs Pulse 65 02/14/23 14:17 BP 120/70 02/14/23 14:17 Pulse Ox 98 02/14/23 14:17 Oxygen Delivery Method Room Air 02/14/23 14:17 BMI result Body Mass Index 19.5 Tobacco/Smoking Status: Tobacco use Status Tobacco use date assessed 02/14/23 02/14/23 14:22 Patient Tobacco Use Status Current everyday Tobacco 02/14/23 14:22 Tobacco use type Cigarette 02/14/23 14:22 e-Cigarette/Vaping Use Never Used 02/14/23 14:22 Depression Screening Interpretation: Negative Thrive Assessment: Date of Thrive Assessment Date Thrive assessed 02/14/23 02/14/23 14:22 Currently or been in a relationship where the following occur: no concerns reported Const General: cooperative, healthy appearing and no acute distress Orientation/consciousness: oriented to person, oriented to place and oriented to time HENMT Head: Yes normal to inspection, Yes normocephalic and Yes atraumatic Mouth: Normal oral and palatal mucosa present and tongue normal Throat: Yes posterior oropharynx normal and Yes uvula midline Eyes General: appearance normal, both eyes and all related structures Neck Neck: Yes normal visual inspection, Yes full ROM and Yes no lymphadenopathy Thyroid: Thyroid normal Carotids: normal carotid upstroke Chest Chest palpation & inspection: normal inspection of the chest Resp Effort & Inspection: normal respiratory effort and able to speak in complete sentences Auscultation: clear to auscultation bilaterally Cardio Jugular venous distension: no JVD Palpation: normal PMI Rate: regular rate Rhythm: regular rhythm Heart sounds: S1 normal heart sound present and S2 normal heart sound present GI Inspection: Yes normal to inspection Palpation (GI): Soft to palpation and No hepatosplenomegaly present Auscultation: normal bowel sounds General: Yes no CVA tenderness Back/Spine/Pelvis Back: no CVA tenderness Skin General skin exam: no rashes or lesions noted Neuro General: oriented to person, oriented to place and oriented to time Extrem General: Yes normal to inspection and Yes full ROM Assessment and Plan Assessment & Plan (1) Sinusitis: Code(s): J32.9 - Chronic sinusitis, unspecified Plan: rx sent Orders: Orders Comprehensive [place]. Panel Fast Today N28.9 - Disorder of kidney and ureter, unspecified Lipid Panel Today E78.5 - Hyperlipidemia, unspecified Thyroid Stimulating Hormone Today E03.9 - Hypothyroidism, unspecified Complete Blood Count Auto Diff Today D64.9 - Anemia, unspecified Medications: New azithromycin take 500 mg today (day 1), then 250 mg for 4 days (days 2-5) PO 6 tabs 0RF Coding Level of Care Code Est Pt Level 3 (23282) Diagnoses Sinusitis J32.9
[2023-02-14 14:17] VITALS: BP 120/70; PULSE 65; O2SAT 98; BMI 19.5
== END 2023-02-14 14:28 | disposition home or self-care (01) ==
PROVIDERS: PCP Internal Medicine; Visit Provider Internal Medicine
DX: J32.9 Chronic sinusitis, unspecified (principal)
CPT/HCPCS: 99213

== ENCOUNTER 2023-07-11 12:51 | Outpatient (AMB) | payer OTHER, SELFPAY ==
[2023-07-11 12:52] VITALS: BP 82/60; PULSE 60; O2SAT 96; BMI 19.7
--- NOTE | 2023-07-11 12:52 | MHC.PC.OV ---
Vital Signs 07/11/23 12:52 Height 5 ft 7 in Weight 126 lb BMI 19.7 BP 82/60 L Blood Pressure Location Lt brachial Position Sitting Pulse 60 Pulse Source Pulse Oximeter Pulse Oximetry (%) 96 Oxygen Delivery Method Room Air Intake Visit Reasons: Annual Exam- needs FULL PHQ9+ THRIVE Park Interpretive Ranger Required: No Mold Stamper: Not Required per policy Accompanied by: Self / Same As Patient Allergies No Known Allergies Allergy (Verified 07/11/23 12:53) Tobacco use date assessed: 02/14/23 Dental Screening Dental Screen Date: 07/11/23 Did you have a dental visit in the last 12 months?: No Did you have a dental problem in the last 6 months where you did not have access to dental care?: No Was dental information given to patient?: Patient has dentist HPI Annual Exam- needs FULL PHQ9+ THRIVE HPI Details healthy [facility] Medical History Vertigo Surgical History History of inguinal hernia repair History of appendectomy Family History Mother No problems noted. Father Mental health disorder Substance use disorder Social History Housing: Apartment Patient Tobacco Use Status: Current everyday Tobacco user Tobacco use type: Cigarette Cigarettes Per Day: 5 e-Cigarette/Vaping Use: Never Used Second Hand Smoke Exposure: Yes Substance Use Type: Marijuana service: No Current occupational status: employed Cognitive needs: No Hearing needs: No Vision needs: No Questionnaire PHQ-9 Over the last 2 weeks, how often have you been bothered by any of the following problems? 1. Little interest or pleasure in doing things: not at all 2. Feeling down, depressed, or hopeless: not at all 3. Trouble falling or staying asleep, or sleeping too much: not at all 4. Feeling tired or having little energy: not at all 5. Poor appetite or overeating: not at all 6. Feeling bad about yourself - or that you are a failure or have let yourself or your family down: not at all 7. Trouble concentrating on things, such as reading the newspaper or watching television: not at all 8. Moving or speaking so slowly that other people could have noticed. Or the opposite - being so fidgety or restless that you have been moving around a lot more than usual: not at all 9. Thoughts that you would be better off or of hurting yourself in some way: not at all Total score: 0 Depression Screening Interpretation: Negative Depression Screening Done: Yes 59152 - PHQ-9 Billing: Yes Source: Developed by Drs. Jesus Mcpherson, Morales Ochoa and colleagues, with an educational gianluca from [employer]. Thrive Questionnaire Date Thrive assessed: 07/11/23 I am a: Patient What is your living situation today?: I have a steady place to live Within the past 12 months, did the food you bought not last and you didn't have the money to get more?: Never true Within the past 12 months, did you worry whether your food would run out before you got money to buy more?: Never true Do you have trouble paying for medicines?: No Do you have trouble getting transportation to medical appointments?: No Do you have trouble paying your heating and electricity bill?: No Do you have trouble taking care of your child, family member or friend?: No Do you have trouble with day-to-day activities such as bathing, preparing meals, shopping, managing finances, etc.?: No Are you currently unemployed and looking for a job?: No Are you interested in more education?: No Please select the resources that you would like help with: None FIONA-7 AMB Questionnaire FIONA-7 Date FIONA - 7 assessed: 02/14/23 Source: Developed by Drs. Jesus Mcpherson, Norma Dejesus, Morales Dior and colleagues, with an educational gianluca from [employer]. Review of Systems Const Denies chills, Denies fatigue, Denies headache(s) and Denies weight loss Eyes Denies change in vision, Denies diplopia and Denies eye pain ENT Denies vertigo, Denies dizziness, Denies headache(s) and Denies nasal discharge Card Denies chest pain, Denies rapid heart rate and Denies dyspnea on exertion Resp Denies chest congestion, Denies cough, Denies pain with cough and Denies dyspnea on exertion GI Denies abdominal pain, Denies hematochezia and Denies change in bowel habits Musc Denies myalgias, Denies arthralgias and Denies joint swelling Skin/Breast Denies lesions and Denies unusual bruising Neuro Denies vertigo, Denies dizziness, Denies headache(s) and Denies focal weakness Endo Denies fatigue Physical exam (Primary Care) Vital Signs: Last Vital Signs Pulse 60 07/11/23 12:52 BP 82/60 L 07/11/23 12:52 Pulse Ox 96 07/11/23 12:52 Oxygen Delivery Method Room Air 07/11/23 12:52 BMI result Body Mass Index 19.7 Tobacco/Smoking Status: Tobacco use Status Tobacco use date assessed 02/14/23 07/11/23 12:56 Patient Tobacco Use Status Current everyday Tobacco 07/11/23 12:56 Tobacco use type Cigarette 07/11/23 12:56 e-Cigarette/Vaping Use Never Used 07/11/23 12:56 PHQ-9: PHQ-9 Score PHQ-9: Total score 0 07/11/23 12:57 Depression Screening Interpretation: Negative Thrive Assessment: Date of Thrive Assessment Date Thrive assessed 07/11/23 07/11/23 12:57 Const General: cooperative, healthy appearing and no acute distress Orientation/consciousness: oriented to person, oriented to place and oriented to time [facility] Head: Yes normal to inspection, Yes normocephalic and Yes atraumatic Mouth: Normal oral and palatal mucosa present and tongue normal Throat: Yes posterior oropharynx normal and Yes uvula midline Eyes General: appearance normal, both eyes and all related structures Neck Neck: Yes normal visual inspection, Yes full ROM and Yes no lymphadenopathy Thyroid: Thyroid normal Carotids: normal carotid upstroke Chest Chest palpation & inspection: normal inspection of the chest Resp Effort & Inspection: normal respiratory effort and able to speak in complete sentences Auscultation: clear to auscultation bilaterally Cardio Jugular venous distension: no JVD Palpation: normal PMI Rate: regular rate Rhythm: regular rhythm Heart sounds: S1 normal heart sound present and S2 normal heart sound present GI Inspection: Yes normal to inspection Palpation (GI): Soft to palpation and No hepatosplenomegaly present Auscultation: normal bowel sounds General: Yes no CVA tenderness Back/Spine/Pelvis Back: no CVA tenderness Skin General skin exam: no rashes or lesions noted Neuro General: oriented to person, oriented to place and oriented to time Extrem General: Yes normal to inspection and Yes full ROM Assessment and Plan Assessment & Plan (1) Physical exam: Code(s): Z00.00 - Encounter for general adult medical examination without abnormal findings Plan: healthy; do labs Orders: Orders Hepatitis C Antibody Today Z20.2 - Contact with and (suspected) exposure to infections with a predominantly sexual mode of transmission Herpes Simplex Virus Ab IgG Today Z20.2 - Contact with and (suspected) exposure to infections with a predominantly sexual mode of transmission HIV Ab/Ag Today Z20.2 - Contact with and (suspected) exposure to infections with a predominantly sexual mode of transmission Syphilis Screen Today Z20.2 - Contact with and (suspected) exposure to infections with a predominantly sexual mode of transmission Coding Level of Care Code Est Pt Prev Care 18-39y(04879) Diagnoses Physical exam Z00.00
== END 2023-07-11 13:04 | disposition home or self-care (01) ==
PROVIDERS: Visit Provider Internal Medicine
DX: Z00.00 Encounter for general adult medical examination without abnormal findings (principal)
CPT/HCPCS: 99395

== ENCOUNTER 2023-07-11 13:07 | Outpatient (REF) | payer OTHER, SELFPAY ==
[2023-07-11 13:20] LABS: MANUAL DIFF FLAG NO
[2023-07-11 13:39] LABS: Basophils Percent Auto 0.3 % (0-2); Eosinophils Absolute Auto 0.2 X10*3/uL (0.0-0.4); Eosinophils Percent Auto 2.4 % (0-4); Hematocrit 46.1 % (42.0-52.0); Hemoglobin 16.3 g/dl (14.0-18.0); Imm Gran Abs Auto 0.02 X10*3/uL (0.00-0.03); Imm Gran Pct Auto 0.3 % (0.0-0.4); Lymphocytes Absolute Auto 1.8 X10*3/uL (1.2-4.9); Mean Corpuscular HGB Conc 35.4 g/dl (31.0-36.0); Mean Corpuscular Hemoglobin 30.9 pg (27.0-33.0); Mean Corpuscular Volume 87.3 fL (80.0-98.0); Mean Platelet Volume 10.9 fL (9.4-12.4); Monocytes Absolute Auto 0.5 X10*3/uL (0.1-1.2); Monocytes Percent Auto 6.8 % (2-11); Neutrophils Absolute Auto 5.3 x10*3/uL (2.0-8.3); Neutrophils Percent Auto 67.2 % (45-73); Platelet Count 193 X10*3/uL (160-400); Red Blood Count 5.28 X10*6/uL (4.60-5.80); Red Cell Distribution Width 12.2 % (11.0-16.0); White Blood Count 7.9 X10*3/uL (4.8-10.8)
[2023-07-11 14:19] LABS: Alanine Aminotransferase 11 U/L (0-40); Albumin Level 4.6 g/dL (3.5-5.0); Alkaline Phosphatase 77 U/L (39-117); Anion Gap 11 (12-20); Aspartate Amino Transferase 16 U/L (5-37); Bilirubin Total 0.5 mg/dL (0.0-1.0); Blood Urea Nitrogen 9 mg/dL (9-16); Calcium 9.7 mg/dL (8.4-10.2); Carbon Dioxide 29 mmol/L (22-29); Chloride 104 mmol/L (96-108); Cholesterol 174 mg/dL (<200); Estimated Glomerular Filt Rate > 60; Glucose Fasting 105 mg/dL (60-99); HDL Cholesterol 45 mg/dL (>40); LDL Cholesterol Calculated 112 mg/dL (<100); Potassium 3.9 mmol/L (3.3-5.1); Sodium 140 mmol/L (135-145); Total Protein 7.8 g/dL (6.5-8.0); Triglycerides 86 mg/dL (<150)
[2023-07-11 14:25] LABS: Syphilis Screen Nonreactive (Nonreactive)
[2023-07-11 14:36] LABS: Thyroid Stimulating Hormone 1.67 uIU/mL (0.32-4.0)
[2023-07-12 04:34] LABS: HIV AB/AG Nonreactive (Nonreactive); HIV Num 1 0.09 S/CO (0.00-0.99); ~Hepatitis C Antibody Nonreactive (Nonreactive)
[2023-07-15 19:08] LABS: Herpes Simplex Type 1 IgG 3.78 index; Herpes Simplex Type 2 IgG <0.90 index
== END 2023-07-11 13:08 | disposition home or self-care (01) ==
LOC: HO.LAB 13:07
PROVIDERS: PCP Internal Medicine; Visit Provider Internal Medicine
DX: N28.9 Disorder of kidney and ureter, unspecified (principal); D64.9 Anemia, unspecified; E78.5 Hyperlipidemia, unspecified; E03.9 Hypothyroidism, unspecified; Z20.2 Contact with and (suspected) exposure to infections with a predominantly sexual mode of transmission
CPT/HCPCS: 36415; 80053; 80061; 84443; 85025; 86695; 86696; 86780; 86803; 87389

== ENCOUNTER 2023-07-30 10:48 | Outpatient (AMB) | payer OTHER, SELFPAY ==
[2023-07-30 10:54] VITALS: BP 98/60; PULSE 68; O2SAT 95; BMI 20.2
--- NOTE | 2023-07-30 10:54 | MHC.PC.OV ---
Vital Signs 07/30/23 10:54 Height 5 ft 7 in Weight 129 lb BMI 20.2 BP 98/60 Blood Pressure Location Lt brachial Position Sitting Pulse 68 Pulse Source Pulse Oximeter Pulse Oximetry (%) 95 Oxygen Delivery Method Room Air Intake Visit Reasons: follow up, lab results Nuclear Fuel Enrichment Technician Required: No Truck Mechanic: Not Required per policy Accompanied by: Self / Same As Patient Allergies No Known Allergies Allergy (Verified 07/30/23 10:54) Tobacco use date assessed: 07/30/23 Dental Screening Dental Screen Date: 07/30/23 Did you have a dental visit in the last 12 months?: No Did you have a dental problem in the last 6 months where you did not have access to dental care?: No Was dental information given to patient?: Patient has dentist HPI follow up, lab results HPI Details iGg POS FOR TYPE i Herpes; consistent with past exposure PFSH Medical History Vertigo Surgical History History of inguinal hernia repair History of appendectomy Family History Mother No problems noted. Father Mental health disorder Substance use disorder Social History Housing: Apartment Patient Tobacco Use Status: Current everyday Tobacco user Tobacco use type: Cigarette Cigarettes Per Day: 5 e-Cigarette/Vaping Use: Never Used Second Hand Smoke Exposure: Yes Substance Use Type: Marijuana service: No Current occupational status: employed Cognitive needs: No Hearing needs: No Vision needs: No Questionnaire PHQ-9 Over the last 2 weeks, how often have you been bothered by any of the following problems? 1. Little interest or pleasure in doing things: more than half the days 2. Feeling down, depressed, or hopeless: more than half the days 3. Trouble falling or staying asleep, or sleeping too much: more than half the days 4. Feeling tired or having little energy: several days 5. Poor appetite or overeating: several days 6. Feeling bad about yourself - or that you are a failure or have let yourself or your family down: not at all 7. Trouble concentrating on things, such as reading the newspaper or watching television: more than half the days 8. Moving or speaking so slowly that other people could have noticed. Or the opposite - being so fidgety or restless that you have been moving around a lot more than usual: more than half the days 9. Thoughts that you would be better off or of hurting yourself in some way: not at all Total score: 12 Depression Screening Interpretation: Negative Depression Screening Done: Yes 47549 - PHQ-9 Billing: Yes Source: Developed by Drs. Jesus Mcpherson, Norma Dejesus, Morales Dior and colleagues, with an educational gianluca from [employer]. Thrive Questionnaire Date Thrive assessed: 07/11/23 FIONA-7 AMB Questionnaire FIONA-7 Date FIONA - 7 assessed: 07/30/23 Feeling nervous, anxious, or on edge: 2 = More than half the days Not being able to stop or control worryin = More than half the days Worrying too much about different things: 2 = More than half the days Trouble relaxin = More than half the days Being so restless that it is hard to sit still: 2 = More than half the days Becoming easily annoyed or irritable: 2 = More than half the days Feeling afraid as if something awful might happen: 1 = Several days Total FIONA-7 score (0-4 normal; 5-9 mild; 10-14 moderate; 15-21 severe): 13 Source: Developed by Drs. Jesus Mcpherson, Norma Dejesus, Morales Dior and colleagues, with an educational gianluca from [employer]. Review of Systems Const Denies chills, Denies headache(s) and Denies weight loss ENT Denies headache(s) Card Denies chest pain, Denies syncope, Denies irregular heart rhythm and Denies dyspnea Resp Denies chest congestion, Denies cough and Denies dyspnea GI Denies abdominal pain, Denies change in stool character, Denies nausea and Denies vomiting Musc Denies deformity and Denies joint swelling Neuro Denies syncope and Denies headache(s) Physical exam (Primary Care) Vital Signs: Last Vital Signs Pulse 68 07/30/23 10:54 BP 98/60 07/30/23 10:54 Pulse Ox 95 07/30/23 10:54 Oxygen Delivery Method Room Air 07/30/23 10:54 BMI result Body Mass Index 20.2 Tobacco/Smoking Status: Tobacco use Status Tobacco use date assessed 07/30/23 07/30/23 10:55 Patient Tobacco Use Status Current everyday Tobacco 07/30/23 10:55 Tobacco use type Cigarette 07/30/23 10:55 e-Cigarette/Vaping Use Never Used 07/30/23 10:55 PHQ-9: PHQ-9 Score PHQ-9: Total score 12 07/30/23 11:00 Depression Screening Interpretation: Negative Thrive Assessment: Date of Thrive Assessment Date Thrive assessed 07/11/23 07/30/23 10:55 Const General: cooperative, comfortable, no acute distress and alert Neck Neck: Yes no lymphadenopathy Thyroid: Thyroid normal Resp Effort & Inspection: normal respiratory effort Auscultation: clear to auscultation bilaterally Percussion: percussion normal Cardio Jugular venous distension: no JVD Palpation: normal PMI Rate: regular rate Rhythm: regular rhythm Heart sounds: S1 normal heart sound present and S2 normal heart sound present GI Inspection: Yes normal to inspection Palpation (GI): No hepatosplenomegaly present Skin General skin exam: no rashes or lesions noted Extrem General: Yes no clubbing, cyanosis or edema Assessment and Plan Assessment & Plan (1) Exposure to herpes simplex virus (HSV): Code(s): Z20.828 - Contact with and (suspected) exposure to other viral communicable diseases Plan: no rx indicated Coding Level of Care Code Est Pt Level 3 (08434) Diagnoses Exposure to herpes simplex virus (HSV) Z20.828
== END 2023-07-30 11:09 | disposition home or self-care (01) ==
PROVIDERS: PCP Internal Medicine; Visit Provider Internal Medicine
DX: Z20.828 Contact with and (suspected) exposure to other viral communicable diseases (principal)
CPT/HCPCS: 99213

== ENCOUNTER 2023-08-31 18:15 | Emergency (ER) | payer OTHER, SELFPAY ==
--- NOTE | ~2023-08-31 | CT_ITS ---
EXAMINATION: CT ABDOMEN AND PELVIS WITH CONTRAST CLINICAL INFORMATION: Left abdominal pain/vomiting, history of diverticulitis COMPARISON: None available. TECHNIQUE: Multidetector volumetric images were obtained from the superior aspect of the liver through the pubic symphysis following administration 85 mL of Omnipaque 350 intravenous contrast. Sagittal and coronal reformatted images were obtained on the technologist's workstation. Oral contrast: No This CT examination was performed using dose optimization techniques as appropriate, variously including the following: *Automated exposure control *Adjustment of mA and/or kV according to patient size (this includes techniques or standardized protocols for targeted exams where dose is matched to indication/reason for exam; i.e. extremities or head) *Use of iterative reconstruction technique DLP: 297 mGy-cm FINDINGS: LUNG BASES: Unremarkable. LIVER AND BILIARY TREE: Unremarkable. GALLBLADDER: Unremarkable. PANCREAS: Unremarkable. SPLEEN: Unremarkable. ADRENAL GLANDS: Unremarkable. KIDNEYS AND URETERS: Unremarkable. GASTROINTESTINAL TRACT: Unremarkable. No bowel dilation. No bowel containing or perienteric fluid collections/inflammatory findings Normal appendix. VASCULAR: Unremarkable LYMPH NODES: No lymphadenopathy. PERITONEUM: No ascites. BLADDER: Unremarkable. PELVIC VISCERA: Unremarkable. ABDOMINAL AND PELVIC WALL: Unremarkable. OSSEOUS STRUCTURES: Unremarkable. CT/CT abdomen pelvis w IV con IMPRESSION: No acute abnormality of the abdomen or pelvis, or findings to explain left-sided abdominal pain.
[2023-08-31 18:25] VITALS: BP 109/40; PULSE 85; RESP 16; TEMP 36.4; O2SAT 97; BMI 19.4
--- NOTE | 2023-08-31 18:37 | ED_ITS ---
HPI - Abdominal Pain General Chief Complaint: Abdominal Pain Stated Complaint: vomiting Time Seen by Provider: 08/31/23 18:29 Source: patient Mode of arrival: ambulatory Limitations: no limitations History of Present Illness HPI narrative: This is a 33-year-old male with history of diverticulitis, abdominal surgical history of having a appendectomy and bilateral inguinal hernia repairs with complaints of left-sided abdominal pain which began this morning with vomiting and 1 episode of diarrhea. Patient denies fevers, chills, urinary symptoms. No testicular pain. Patient does report that 1 of his family members have similar symptoms at home. Related Data Previous Rx's Medication Instructions Recorded ondansetron 4 mg disintegrating 4 mg PO Q6H PRN nausea and 08/31/23 tablet vomiting #15 tabs Allergies Allergy/AdvReac Type Severity Reaction Status Date / Time Seasonal Allergies Allergy Runny Nose Verified 08/31/23 18:25 Review of Systems Review of Systems Yes all other systems are reviewed and are negative Constitutional: Reports no additional constitutional complaints, Denies body ache(s), Denies chills, Denies fever(s), Denies headache(s) and Denies weakness Eyes: Reports no additional eye complaints and Denies change in vision Reports system reviewed and no additional complaints, except as documented, Denies dizziness, Denies headache(s), Denies nasal congestion, Denies nasal discharge and Denies neck pain Cardiovascular: Reports no additional cardiovascular complaints, Denies chest pain, Denies leg edema and Denies dyspnea Respiratory: Reports no additional respiratory complaints, Denies cough and Denies dyspnea Gastrointestinal: Reports no additional gastrointestinal complaints, Reports abdominal pain, Reports diarrhea, Reports nausea and Reports vomiting Genitourinary: Denies dysuria, Denies flank pain, Denies penile discharge, Denies testicular pain, Denies urinary frequency, Denies urinary incontinence and Denies urinary urgency Musculoskeletal: Reports no additional musculoskeletal complaints, Denies back pain, Denies arthralgias, Denies joint swelling, Denies neck pain, Denies numbness and Denies tingling Skin/Breast: Reports system reviewed and no additional complaints, except as docu and Denies rash Reports system reviewed and no additional complaints, except as documented, Denies Abnormal speech present, Denies dizziness, Denies headache(s), Denies numbness, Denies tingling and Denies weakness [facility] Past Medical History Attestation statement: The following information was validated with the patient. Source: old records reviewed and nursing notes reviewed Medical History Vertigo Surgical History History of inguinal hernia repair History of appendectomy Family History Family History Mother No problems noted. Father Mental health disorder Substance use disorder Social History Social History Housing: Apartment Alcohol intake: current Patient Tobacco Use Status: Current everyday Tobacco user Tobacco use type: Cigarette Cigarettes Per Day: 5 Smoked in Last 30 Days: Yes e-Cigarette/Vaping Use: Never Used Second Hand Smoke Exposure: Yes Use of substances other than those prescribed or required for medical reasons: Yes Substance Use Type: Marijuana Advance Directives: No Advance Directives Information Provided: Yes service: No Current occupational status: employed Cognitive needs: No Hearing needs: No Vision needs: No Physical Exam ED Vital Signs: Vital Signs - 24 hr 08/31/23 18:25 08/31/23 19:58 Temperature 97.6 F Pulse Rate 85 77 Respiratory Rate 16 18 Blood Pressure 109/40 L 96/49 L Pulse Oximetry 97 98 Oxygen Delivery Method Room Air Room Air BMI result Body Mass Index 19.4 Const General: cooperative, healthy appearing, comfortable and no acute distress Orientation/consciousness: patient oriented x3 Limitations: no limitations HENMT Head: Yes normal to inspection Ears: hearing grossly normal bilaterally and TM's normal bilaterally General nose exam: Normal external nose present Face and sinus: Yes normal facial exam Mouth: Normal oral and palatal mucosa present Throat: Yes posterior oropharynx normal, Yes tonsils normal and Yes uvula midline Eyes General: appearance normal, both eyes and all related structures Pupils: Equal, round and reactive pupils present Neck Neck: Yes normal visual inspection, Yes full ROM, Yes no lymphadenopathy and Yes no meningeal signs Chest Chest palpation & inspection: normal inspection of the chest Resp Effort & Inspection: normal respiratory effort Auscultation: clear to auscultation bilaterally Cardio Rate: regular rate Rhythm: regular rhythm Peripheral pulses: Peripheral pulses 2+ throughout GI Inspection: Yes normal to inspection Palpation (GI): Soft to palpation, Tenderness to palpation present (GI) in the LLQ and in the LUQ; with no rebound tenderness and no guarding Auscultation: normal bowel sounds Back/Spine/Pelvis Thoracic/Lumbar Spine: thoracic and lumbar spine normal to inspection Skin General skin exam: no rashes or lesions noted Neuro General: patient oriented x3, no meningeal signs, no focal motor deficits and normal sensation to monofilament Cranial nerves: Yes Equal, round and reactive pupils present Cognition (Neuro): normal cognition Speech: No Abnormal speech present Gait exam (Neuro): Normal gait present Motor exam (neuro): 5/5 motor strength present throughout Extrem General: Yes normal to inspection Course Course Course Narrative: Labs unremarkable. Viral testing negative. CT shows no acute finding. Likely gastroenteritis. Patient now tolerating p.o.. Will discharge home with supportive measures. Reviewed worrisome signs and symptoms of when to return to the emergency room. Comfortable plan for discharge home. Reevaluation(s) Reevaluation #1: 2055-patient tolerating p.o.. Feels improved. Plan for discharge home Medical Decision Making Medical Decision Making [facility] Narrative: This is a 33-year-old male with history of diverticulitis, abdominal surgical history of having a appendectomy and bilateral inguinal hernia repairs with complaints of left-sided abdominal pain which began this morning with vomiting and 1 episode of diarrhea. Patient denies fevers, chills, urinary symptoms. No testicular pain. Patient does report that 1 of his family members have similar symptoms at home. On exam patient has LLQ/LUQ TTP with no rebound or guarding. +BS Will need labs, UA, CT A/P, viral testing WIll give IVF, antiemetic, analgesia Differential Diagnosis Differential Diagnoses: The differential diagnosis associated with the presentation includes Diverticulitis, renal colic, pyelonephritis, gastroenteritis Low concern for SBO Admission/Observation Consideration of admission/observation: Escalation of care including admission/observation considered Negative imaging, tolerating p.o., likely has viral gastroenteritis. No need for admission for IV fluids and further management Lab Data [facility] Lab Attestation statement: I reviewed the patient's lab results. Unremarkable 08/31/23 18:54 08/31/23 18:54 Labs: Lab Results 08/31/23 08/31/23 08/31/23 Range/Units 18:54 19:00 20:00 WBC 10.5 (4.8-10.8) X10*3/uL RBC 5.28 (4.60-5.80) X10*6/uL Hgb 16.5 (14.0-18.0) g/dl Hct 46.2 (42.0-52.0) % MCV 87.5 (80.0-98.0) fL MCH 31.3 (27.0-33.0) pg MCHC 35.7 (31.0-36.0) g/dl RDW 12.5 (11.0-16.0) % Plt Count 180 (160-400) X10*3/uL MPV 10.7 (9.4-12.4) fL Immature Gran % (Auto) 0.2 (0.0-0.4) % Neut % (Auto) 88.7 H (45-73) % Lymph % (Auto) 6.9 L (20-40) % [place] % (Auto) 2.9 (2-11) % Eos % (Auto) 1.1 (0-4) % Baso % (Auto) 0.2 (0-2) % Lymph # (Auto) 0.7 L (1.2-4.9) X10*3/uL [place] # (Auto) 0.3 (0.1-1.2) X10*3/uL Eos # (Auto) 0.1 (0.0-0.4) X10*3/uL Baso # (Auto) 0.0 (0.0-0.2) X10*3/uL Abs Immat Gran (auto) 0.02 (0.00-0.03) X10*3/uL Absolute Neuts (auto) 9.3 H (2.0-8.3) x10*3/uL Absolute Nucleated RBC 0.000 (0.0-0.012) X10*3/uL Nucleated RBC % (auto) 0.0 (0.0-0.2) /100WBC Sodium 139 (135-145) mmol/L Potassium 4.4 (3.3-5.1) mmol/L Chloride 107 (96-108) mmol/L Carbon Dioxide 21 L (22-29) mmol/L Anion Gap 15 (12-20) BUN 11 (9-16) mg/dL Creatinine 0.84 (0.5-1.4) mg/dL Estim Creat Clear Calc 100.3 Estimated GFR > 60 Random Glucose 94 (60-115) mg/dL Calcium 10.0 (8.4-10.2) mg/dL Total Bilirubin 0.7 (0.0-1.0) mg/dL Direct Bilirubin 0.2 (0.0-0.5) mg/dL AST 23 (5-37) U/L ALT 14 (0-40) U/L Alkaline Phosphatase 67 (39-117) U/L Total Protein 8.2 H (6.5-8.0) g/dL Albumin 4.8 (3.5-5.0) g/dL Lipase 17 (8-78) U/L Urine Color Dark Yellow Urine Appearance Cloudy Urine pH 6.0 (5.0-9.0) Ur Specific [place] >= 1.030 H (1.005-1.025) Urine Protein Trace (Neg-Trace) mg/dL Urine Glucose (UA) Negative (Negative) mg/dL Urine Ketones 40 (Negative) mg/dL Urine Blood Negative (Negative) Urine Nitrite Negative (Negative) Ur Leukocyte Esterase Negative (Negative) COVID-19 (MOHSEN) Negative (Negative) COVID-19 Clin Com See Note Influenza Type A (UZAIR) Negative (Negative) Influenza Type B (UZAIR) Negative (Negative) Influenza A & B Note See Note Independent Interpretation I performed an independent interpretation of an: CT Scan Interpretation: I independently viewed the CT scan agree with the radiology report Radiology Impression Discussion of test interpretation with radiology: I have reviewed the radiologist's reading. Radiologist Impression: [place] [id number] CT Scan Report Signed Patient: Danny Hilliard Jr MR#: [id number] : 1990 Acct:[id number] Age/Sex: 33 / M ADM Date: 08/31/23 Loc: .ED Attending Dr: Ordering Physician: Paige Porter NP Date of Service: 08/31/23 Procedure(s): CT abdomen pelvis w IV con Accession Number(s): [id number] cc: Ignacio Hurley MD; Charlotte,Paige DIRECTOR [employer] COMPENSATION~ EXAMINATION: CT ABDOMEN AND PELVIS WITH CONTRAST CLINICAL INFORMATION: Left abdominal pain/vomiting, history of diverticulitis COMPARISON: None available. TECHNIQUE: Multidetector volumetric images were obtained from the superior aspect of the liver through the pubic symphysis following administration 85 mL of Omnipaque 350 intravenous contrast. Sagittal and coronal reformatted images were obtained on the technologist's workstation. Oral contrast: No This CT examination was performed using dose optimization techniques as appropriate, variously including the following: *Automated exposure control *Adjustment of mA and/or kV according to patient size (this includes techniques or standardized protocols for targeted exams where dose is matched to indication/reason for exam; i.e. extremities or head) *Use of iterative reconstruction technique DLP: 297 mGy-cm FINDINGS: LUNG BASES: Unremarkable. LIVER AND BILIARY TREE: Unremarkable. GALLBLADDER: Unremarkable. PANCREAS: Unremarkable. SPLEEN: Unremarkable. ADRENAL GLANDS: Unremarkable. KIDNEYS AND URETERS: Unremarkable. GASTROINTESTINAL TRACT: Unremarkable. No bowel dilation. No bowel containing or perienteric fluid collections/inflammatory findings Normal appendix. VASCULAR: Unremarkable LYMPH NODES: No lymphadenopathy. PERITONEUM: No ascites. BLADDER: Unremarkable. PELVIC VISCERA: Unremarkable. ABDOMINAL AND PELVIC WALL: Unremarkable. OSSEOUS STRUCTURES: Unremarkable. CT/CT abdomen pelvis w IV con IMPRESSION: No acute abnormality of the abdomen or pelvis, or findings to explain left-sided abdominal pain. Prescription Management I considered prescription management with: Pain Medication Medications Administered Discontinued Medications Generic Name Dose Route Start Last Admin Trade Name Freq PRN Reason Stop Dose Admin Sodium Chloride 1,000 mls @ 999 mls/hr 08/31/23 18:45 08/31/23 19:57 Ns IV 08/31/23 19:45 Infused .Q1H1M MAINOR Infusion Iohexol 100 ml 08/31/23 19:54 08/31/23 19:54 Iohexol 350 Mg/Ml 100 Ml Infus..Btl IV 08/31/23 19:55 85 ml ONCE ONE Administration Ketorolac Tromethamine 15 mg 08/31/23 18:36 08/31/23 18:55 Ketorolac Tromethamine 15 Mg/Ml Vial IVPUSH 08/31/23 18:37 15 mg ONCE ONE Administration Ondansetron HCl 4 mg 08/31/23 18:36 08/31/23 18:56 Ondansetron Hcl 4 Mg/2 Ml Vial IVPUSH 08/31/23 18:37 4 mg ONCE ONE Administration Discharge Plan Discharge Clinical Impression: Abdominal pain Patient Disposition: Home, Self-Care Instructions: Abdominal Pain (ED) Additional Instructions: Labs are unremarkable CT scan shows no acute finding. Testing for COVID and flu are negative Start with clear liquids and advance diet as tolerated Return for any worsening symptoms Prescriptions: New ondansetron 4 mg tablet,disintegrating 4 mg PO Q6H PRN (Reason: nausea and vomiting) Qty: 15 0RF Referrals: Ignacio Hurley MD [Primary Care Provider] - 1 week Stand Alone Forms: Work/School Release
[2023-08-31] MEDS: Ketorolac Tromethamine 15 MG/ML VIAL IVPUSH (18:55)
[2023-08-31] MEDS: 0.9 % Sodium Chloride 1,000 ML 999 ML IV (18:55)
[2023-08-31] MEDS: ondansetron HCL 4 MG/2 ML VIAL IVPUSH (18:56)
[2023-08-31 18:57] LABS: MANUAL DIFF FLAG NO
[2023-08-31 18:59] LABS: Basophils Percent Auto 0.2 % (0-2); Eosinophils Absolute Auto 0.1 X10*3/uL (0.0-0.4); Eosinophils Percent Auto 1.1 % (0-4); Hematocrit 46.2 % (42.0-52.0); Hemoglobin 16.5 g/dl (14.0-18.0); Imm Gran Abs Auto 0.02 X10*3/uL (0.00-0.03); Imm Gran Pct Auto 0.2 % (0.0-0.4); Lymphocytes Absolute Auto 0.7 X10*3/uL (1.2-4.9); Lymphocytes Percent Auto 6.9 % (20-40); Mean Corpuscular HGB Conc 35.7 g/dl (31.0-36.0); Mean Corpuscular Hemoglobin 31.3 pg (27.0-33.0); Mean Corpuscular Volume 87.5 fL (80.0-98.0); Mean Platelet Volume 10.7 fL (9.4-12.4); Monocytes Absolute Auto 0.3 X10*3/uL (0.1-1.2); Monocytes Percent Auto 2.9 % (2-11); Neutrophils Absolute Auto 9.3 x10*3/uL (2.0-8.3); Neutrophils Percent Auto 88.7 % (45-73); Platelet Count 180 X10*3/uL (160-400); Red Blood Count 5.28 X10*6/uL (4.60-5.80); Red Cell Distribution Width 12.5 % (11.0-16.0); White Blood Count 10.5 X10*3/uL (4.8-10.8)
[2023-08-31 19:26] LABS: COVID-19 Test Negative (Negative); IDNOW Serial# 08D9AD1C; IDNOW Serial# 58CA691E; Influenza A Negative (Negative); Influenza B2 Negative (Negative)
[2023-08-31 19:27] LABS: Alanine Aminotransferase 14 U/L (0-40); Albumin Level 4.8 g/dL (3.5-5.0); Alkaline Phosphatase 67 U/L (39-117); Anion Gap 15 (12-20); Aspartate Amino Transferase 23 U/L (5-37); Bilirubin Direct 0.2 mg/dL (0.0-0.5); Bilirubin Total 0.7 mg/dL (0.0-1.0); Blood Urea Nitrogen 11 mg/dL (9-16); Carbon Dioxide 21 mmol/L (22-29); Chloride 107 mmol/L (96-108); Creatinine Clr Calc Pharmacy 100.3; Estimated Glomerular Filt Rate > 60; Glucose Random 94 mg/dL (60-115); Lipase 17 U/L (8-78); Potassium 4.4 mmol/L (3.3-5.1); Sodium 139 mmol/L (135-145); Total Protein 8.2 g/dL (6.5-8.0)
[2023-08-31] MEDS: iohexoL 350 MG/ML 100 ML INFUS..BTL IV (19:54)
[2023-08-31 19:58] VITALS: BP 96/49; PULSE 77; RESP 18; O2SAT 98
[2023-08-31 20:13] LABS: Appearance Urine Cloudy; Color Urine Dark Yellow; Glucose Urine UA Negative (Negative); Leukocyte Esterase Urine Negative (Negative); Nitrite Urine Negative (Negative); Specific Gravity - Urine >= 1.030 (1.005-1.025); Urine Blood Negative (Negative); Urine Ketones 40 mg/dL (Negative); Urine Protein Trace mg/dL (Neg-Trace)
== END 2023-08-31 21:14 | disposition home or self-care (01) ==
PROVIDERS: Nurse Practitioner Family; Emergency Provider Emergency Medicine; PCP Internal Medicine
DX: R10.32 Left lower quadrant pain (principal); R19.7 Diarrhea, unspecified; Z11.52 Encounter for screening for COVID-19; Z79.899 Other long term (current) drug therapy
CPT/HCPCS: 74177; 80048; 80076; 81003; 83690; 85025; 87502; 87635; 96361; 96374; 96375; 99284; J1885; J2405; Q9967

== ENCOUNTER 2024-01-22 19:58 | Emergency (ER) | payer OTHER, SELFPAY ==
--- NOTE | ~2024-01-22 | XR_ITS ---
EXAMINATION: XR elbow RT min 3V XR wrist RT min 3V CLINICAL INFORMATION: tripped over fence and fell on outstretched arm COMPARISON: None. TECHNIQUE: AP, lateral and oblique views of the right elbow, 3 images. AP, lateral, oblique and scaphoid views right wrist, 4 images. FINDINGS: Right elbow: Nondisplaced vertically oriented radial head fracture with intra-articular extension. There is a large anterior joint effusion. Alignment remains anatomic. No radiopaque foreign body. Right wrist: No acute fracture. The carpal rows are appropriately aligned. Joint spaces are maintained. Alignment is anatomic. No erosions or soft tissue calcifications. XR/XR wrist RT min 3V IMPRESSION: 1. Nondisplaced vertically oriented radial head fracture with intra-articular extension. Large anterior joint effusion. 2. No acute fracture or dislocation of the right wrist.
--- NOTE | ~2024-01-22 | XR_ITS ---
EXAMINATION: XR elbow RT min 3V XR wrist RT min 3V CLINICAL INFORMATION: tripped over fence and fell on outstretched arm COMPARISON: None. TECHNIQUE: AP, lateral and oblique views of the right elbow, 3 images. AP, lateral, oblique and scaphoid views right wrist, 4 images. FINDINGS: Right elbow: Nondisplaced vertically oriented radial head fracture with intra-articular extension. There is a large anterior joint effusion. Alignment remains anatomic. No radiopaque foreign body. Right wrist: No acute fracture. The carpal rows are appropriately aligned. Joint spaces are maintained. Alignment is anatomic. No erosions or soft tissue calcifications. XR/XR elbow RT min 3V IMPRESSION: 1. Nondisplaced vertically oriented radial head fracture with intra-articular extension. Large anterior joint effusion. 2. No acute fracture or dislocation of the right wrist.
[2024-01-22 20:00] VITALS: BP 113/63; PULSE 88; RESP 18; TEMP 37; O2SAT 98; BMI 20.2
--- NOTE | 2024-01-22 20:35 | ED_ITS ---
HPI - Extremity Problem General Chief complaint: Extremity Injury, Upper Stated complaint: arm inj Time Seen by Provider: 01/22/24 20:35 History of Present Illness ED Provider: Mary Ann DENISE Narrative: The patient is an ordinarily healthy 33-year-old who says that he tried jumping over a fence when he tripped over the fence and landed on concrete. He landed on his right side injuring his right elbow. He says that he also sustained a mild abrasion to the region of his right hip but he did not have significant pain in the hip. He has a lot of pain in the elbow associated with episodes of what he describes a severe muscle spasms. He was quite uncomfortable in the right arm generally and came to the emergency room for evaluation. He feels that he is able to use his fingers and his hand normally. When he uses his wrist he has pain. When he uses his elbow he has severe pain. Related Data Previous Rx's ?Medication ?Instructions ?Recorded ondansetron 4 mg disintegrating 4 mg PO Q6H PRN nausea and 08/31/23 tablet vomiting #15 tabs morphine 15 mg immediate release 15 mg PO Q6H PRN pain #10 tabs 01/22/24 tablet Allergies Allergy/AdvReac Type Severity Reaction Status Date / Time Seasonal Allergies Allergy Runny Nose Verified 01/22/24 20:03 Review of Systems Review of Systems: Yes all other systems are reviewed and are negative PMFSH Past Medical History Medical History Vertigo Surgical History History of inguinal hernia repair History of appendectomy Family History Family History Mother No problems noted. Father Mental health disorder Substance use disorder Social History Social History Housing: Apartment Alcohol intake: current Patient Tobacco Use Status: Current everyday Tobacco user Tobacco use type: Cigarette Cigarettes Per Day: 5 e-Cigarette/Vaping Use: Never Used Second Hand Smoke Exposure: Yes Substance Use Type: Marijuana Advance Directives: No Advance Directives Information Provided: No service: No Current occupational status: employed Cognitive needs: No Hearing needs: No Vision needs: No Physical Exam Vital Signs: Vital Signs: Last Vital Signs Temp 98.6 F 01/22/24 22:18 Pulse 88 01/22/24 22:18 Resp 18 01/22/24 22:18 BP 113/63 01/22/24 22:18 Pulse Ox 98 01/22/24 22:18 O2 Del Method Room Air 01/22/24 22:18 BMI result Body Mass Index 20.2 Const: Other: The patient looks as though he has an ordinarily healthy, slim 33-year-old. He looks uncomfortable and seems to be favoring his right arm HEENT: Other: No sign of trauma to the head or the face. Eyes: Other: Pupils are round equal, eyes are normal Neck: Other: Moving his neck easily. Resp: Effort & Inspection: normal respiratory effort Auscultation: clear to auscultation bilaterally Skin: Other: The patient has a mild abrasion to the skin of the right proximal forearm dorsally near the elbow. No full-thickness injury. Neuro: Other: The patient has normal strength and sensation in the right hand. The patient is otherwise neurologically intact. Extrem: Other: There is no gross deformity of the right arm but there is a slight suggestion of swelling near the elbow. The patient is very tender in the region of the elbow Medications Administered Discontinued Medications Generic Name Dose Route Start Last Admin Trade Name Romanq PRN Reason Stop Dose Admin Acetaminophen 975 mg 01/22/24 21:52 01/22/24 22:00 Acetaminophen 325 Mg Tablet PO 01/22/24 21:53 975 mg ONCE ONE Administration Bacitracin 1 appl 01/22/24 21:20 01/22/24 21:24 Bacitracin Oint 0.9 Gm Packet TOPICAL 01/22/24 21:21 1 appl ONCE ONE Administration Protocol Morphine Sulfate 15 mg 01/22/24 21:52 01/22/24 22:00 Morphine Sulfate Immed Release 15 Mg Tablet PO 01/22/24 21:53 Not Given ONCE ONE Medical Decision Making Medical Decision Making MDM Narrative: The patient is a 33-year-old male who tried jumping over a fence when he tripped and landed on concrete, mostly landing on his right arm near the elbow. Elbow x-ray shows an anterior fat pad and a nondisplaced lucency through the radial head she has presumably a fracture. The patient seemed to have a great deal of discomfort. We spoke about whether this should be managed simply with a sling or whether he should be splinted as well as receiving a sling. He would prefer to have a splint. He had a small abrasion near the elbow. This was cleaned and dressed with bacitracin and a Band-Aid. I then applied a long-arm splint with Orthoglass and Kendall bandages. The splint was applied so that the elbow was at a 90 degree angle. The patient tolerated application of the splint well. He was given a sling. He will be referred to the orthopedist on-call. I have sent a prescription for MSIR tablets to the 24 hour pharmacy in [place]. Procedures Orthopedic Splinting/Casting Injury #1: Side: right Upper Extremity Injury Location: elbow Upper Extremity Immobilizer: posterior splint Additional Comments: Sling was applied with cast padding, Orthoglass, and Kendall bandages. The patient was then given a sling. The patient remained neurovascularly intact. Tolerated the procedure well. Discharge Plan Discharge Clinical Impression: Closed fracture of head of right radius Patient Disposition: Home, Self-Care Additional Instructions: You have a nondisplaced fracture of the radial bone at the elbow. You have been placed in a splint and given a sling. You may remove the splint by unwrapping the Kendall bandages. You can then reapply the splint by wrapping the Kendall bandages again. If you remove the splint you should replace the Band-Aid over the abrasion near the elbow. Please plan on resting and taking it easy until you follow up with the orthopedist. As much as you are able to try to keep the elbow elevated with pillows. Keeping the injured area elevated will reduce swelling and pain. I have sent a prescription for morphine tablets to this [facility] on [address] in [place] so that you can pick this prescription up tonight. In addition to the morphine you may also take 2 extra-strength acetaminophen (Tylenol) up to 3 times a day as needed for pain. Please call the orthopedic office in the morning to set up an appointment next week for a recheck. Return to the emergency room if significantly worse. Prescriptions: New morphine 15 mg tablet 15 mg PO Q6H PRN (Reason: pain) Qty: 10 0RF Rx Instructions: Partial Fill upon patient request. No Action ondansetron 4 mg tablet,disintegrating 4 mg PO Q6H PRN (Reason: nausea and vomiting) Qty: 15 0RF Referrals: Faustino Shell MD [Physician] - (Non-displaced right radial head fracture) Interventions: ED Discharge Assessment Last Done: 01/22/24 22:18 Discharge Date/Time: 01/22/24 22:19 Print Language: Spanish
[2024-01-22] MEDS: Bacitracin Oint 0.9 GM PACKET 1 APPL TOPICAL (21:24)
[2024-01-22] MEDS: Acetaminophen 325 MG TABLET 975 MG PO (22:00)
[2024-01-22 22:18] VITALS: BP 113/63; PULSE 88; RESP 18; TEMP 37; O2SAT 98
== END 2024-01-22 22:19 | disposition home or self-care (01) ==
PROVIDERS: Emergency Provider Emergency Medicine; PCP Internal Medicine
DX: S52.121A Displaced fracture of head of right radius, initial encounter for closed fracture (principal); M25.521 Pain in right elbow; Y30.XXXA Falling, jumping or pushed from a high place, undetermined intent, initial encounter; Y93.9 Activity, unspecified; Y92.410 Unspecified street and highway as the place of occurrence of the external cause; Y99.8 Other external cause status; Z79.899 Other long term (current) drug therapy
CPT/HCPCS: 29105; 73080; 73110; 99283; 99284

== ENCOUNTER 2024-01-23 01:11 | Emergency (ER) | payer OTHER, SELFPAY ==
--- NOTE | ~2024-01-23 | XR_ITS ---
EXAMINATION: XR HUMERUS, RIGHT CLINICAL INFORMATION: Pain, known radial head fracture. COMPARISON: Right elbow radiographs 01/22/2024 TECHNIQUE: AP and lateral views of the right humerus. FINDINGS: Longitudinal fracture of the radial head approximately 1 mm cortical step-off is noted. Right elbow joint effusion is visualized. Right humerus appears intact. The visualized right ribs and lung are normal in appearance. Coarse normal glenohumeral alignment. XR/XR humerus RT IMPRESSION: 1. Partially visualized radial head fracture as noted on the comparison right elbow radiographs. 2. Intact right humerus.
[2024-01-23 01:21] VITALS: BP 113/74; PULSE 75; RESP 16; TEMP 36.8; O2SAT 97; BMI 20.7
--- NOTE | 2024-01-23 01:35 | ED_ITS ---
HPI - General Adult General Chief complaint: Extremity Problem Stated complaint: elbow fracture Time Seen by Provider: 01/23/24 01:34 History of Present Illness ED Provider: Mary Ann DENISE narrative: The patient is a 33-year-old male who was seen by me earlier for a right arm injury. His primary injury seemed to be at the right elbow. An x-ray of the elbow showed a nondisplaced radial head fracture with a joint effusion. Placed in a posterior long-arm splint and given a sling. He was also given a dose of acetaminophen for the pain. He had been ordered a dose of oral morphine which he would apparently declined as he was hoping to avoid opioids. This has been sent to the 24 hour pharmacy, the [facility] on [address] in [place]. He returns 3 hours later complaining of severe pain in the he had not picked up the prescription for the morphine tablets. He believes he is having episodes of spasms of pain. These spasms center primarily around the elbow. Related Data Previous Rx's ?Medication ?Instructions ?Recorded ondansetron 4 mg disintegrating 4 mg PO Q6H PRN nausea and 08/31/23 tablet vomiting #15 tabs morphine 15 mg immediate release 15 mg PO Q6H PRN pain #10 tabs 01/22/24 tablet diazepam 5 mg tablet 5 mg PO TID PRN muscle spasm #7 01/23/24 tabs Allergies Allergy/AdvReac Type Severity Reaction Status Date / Time Seasonal Allergies Allergy Runny Nose Verified 01/23/24 01:23 Review of Systems Review of Systems: Yes all other systems are reviewed and are negative PMFSH Past Medical History Medical History Vertigo Surgical History History of inguinal hernia repair History of appendectomy Family History Family History Mother No problems noted. Father Mental health disorder Substance use disorder Social History Social History Housing: Apartment Alcohol intake: current Patient Tobacco Use Status: Current everyday Tobacco user Tobacco use type: Cigarette Cigarettes Per Day: 5 e-Cigarette/Vaping Use: Never Used Second Hand Smoke Exposure: Yes Substance Use Type: Marijuana Advance Directives: No Advance Directives Information Provided: No Do you have a plan to hurt others: No Plan service: No Current occupational status: employed Cognitive needs: No Hearing needs: No Vision needs: No Physical Exam ED Vital Signs: Vital Signs - 24 hr 01/23/24 01:21 01/23/24 01:52 Temperature 98.2 F Pulse Rate 75 Respiratory Rate 16 20 Blood Pressure 113/74 Pulse Oximetry 97 Oxygen Delivery Method Room Air BMI result Body Mass Index 20.7 Const Other: Young man with a long arm posterior splint on his right arm with a sling on the right arm. He looked uncomfortable. HENMT Other: Face is symmetrical. Mucous membranes moist Eyes Other: Pupils are round equal, conjunctivae are clear Resp Effort & Inspection: normal respiratory effort Skin Other: There is an abrasion to the proximal dorsal forearm near the elbow. Skin is intact. No significant skin swelling. No Bruising. Neuro Other: Patient reports diminished sensation in the fingers of the right hand compared to the left hand. However this seems to be consistent across all the fingers of the right hand. No obvious change in sensation on either side of the ring finger. He is able to wiggle his fingers. Extrem Other: The patient is tender with palpation of the right elbow. The muscles of the upper arm and of the forearm seems soft. I do not appreciate any muscular firmness. I can put the wrist through a fairly good range of motion of extension and flexion and I can flex and extend the fingers fairly easily without causing obvious discomfort. Medications Administered Discontinued Medications Generic Name Dose Route Start Last Admin Trade Name Jason PRN Reason Stop Dose Admin Diazepam 5 mg 01/23/24 02:13 01/23/24 02:27 Diazepam 5 Mg Tablet PO 01/23/24 02:14 5 mg ONCE ONE Administration Hydromorphone HCl 0.75 mg 01/23/24 01:34 01/23/24 01:52 Hydromorphone Hcl 1 Mg/Ml Syringe IM 01/23/24 01:35 0.75 mg ONCE ONE Administration Protocol Ketorolac Tromethamine 30 mg 01/23/24 01:34 01/23/24 01:47 Ketorolac Tromethamine 30 Mg/Ml Vial IM 01/23/24 01:35 30 mg ONCE ONE Administration Medical Decision Making Medical Decision Making MDM Narrative: The patient is a 33-year-old male who returns to the emergency room after being discharged by me 3 hours prior after a diagnosis of a nondisplaced right radial head fracture. He has been placed in a long-arm posterior splint and given a sling. He had declined a dose of morphine prior to discharge. He had taken a dose of acetaminophen. After discharge he had not been able to morphine tablets. He returns complaining of severe pain. He describes the pain as episodic and spasm-like. My initial concern was that the patient might have pain related to posterior long-arm splint which had been applied with an Kendall bandage. The splint was removed. The patient continued to have what seemed to be episodic spasms of pain. My plan has been to obtain additional x-rays of the humerus in the forearm to ensure that I had not missed a 2nd fracture. The patient was therefore given 30 mg of IM ketorolac 5 mg of IM hydromorphone. Additional x- rays were attempted. The humerus x-rays were obtained and showed only the original radial head fracture. The humerus itself was intact. The patient had found that moving his arms sufficiently to obtain a forearm x-ray was too painful however and the x-ray technicians were unable to obtain a forearm x-ray. The patient was given a dose of diazepam and further observed. He continued to have what seemed to be intermittent episodes of spasmodic like pain. I examined him several times. On each occasion I felt that the compartments of the upper arm and the forearm seemed soft and not particularly tender. He is tenderness serially seems to center around the elbow joint itself. He continues to have a good radial pulse. I was able to passively extend and flex the fingers of the right hand without causing obvious worsening pain. The same was true of the wrist. Ultimately I feel fairly confident he does not have a compartment syndrome associated with his nondisplaced radial head fracture. I will send a prescription for diazepam to his pharmacy in addition to the morphine which has been previously sent. I have applied an ice pack to the elbow. I think he may be discharged. On this occasion he will not be placed in a posterior splint again. He will be managed only with a sling. He will contact the orthopedic office in the morning. He should return if worse. Discharge Plan Discharge Clinical Impression: Pain in right elbow, Closed fracture of head of right radius Patient Disposition: Home, Self-Care Additional Instructions: Wear the sling provided for comfort. Rest the arm as much as you are able to. Apply ice to the elbow the hours. You may take 2 extra-strength acetaminophen (Tylenol) up to 3 times a day. Prescriptions have also been sent for morphine and diazepam to help with your pain and spasms. Please contact the orthopedic office for follow up. If you feel significantly worse please return to the emergency room for further evaluation. Prescriptions: New diazepam 5 mg tablet 5 mg PO TID PRN (Reason: muscle spasm) Qty: 7 0RF No Action morphine 15 mg tablet 15 mg PO Q6H PRN (Reason: pain) Qty: 10 0RF Rx Instructions: Partial Fill upon patient request. ondansetron 4 mg tablet,disintegrating 4 mg PO Q6H PRN (Reason: nausea and vomiting) Qty: 15 0RF Referrals: Faustino Shell MD [Physician] - (radial head fracture) Print Language: Salvadorean
[2024-01-23] MEDS: Ketorolac Tromethamine 30 MG/ML VIAL IM (01:47)
[2024-01-23 01:52] VITALS: RESP 20
[2024-01-23] MEDS: HYDROmorphone HCl 1 MG/ML SYRINGE 0.75 MG IM (01:52)
[2024-01-23] MEDS: diazePAM 5 MG TABLET PO (02:27)
[2024-01-23] MEDS: oxyCODONE HCl Immed Release 5 MG TABLET PO (03:19)
[2024-01-23 03:40] VITALS: BP 116/62; PULSE 72; RESP 20; TEMP 36.7; O2SAT 98
== END 2024-01-23 03:49 | disposition home or self-care (01) ==
PROVIDERS: Emergency Provider Emergency Medicine; PCP Internal Medicine
DX: M25.521 Pain in right elbow (principal); S52.124D Nondisplaced fracture of head of right radius, subsequent encounter for closed fracture with routine healing; X58.XXXD Exposure to other specified factors, subsequent encounter
CPT/HCPCS: 73060; 96372; 99283; 99284; J1170; J1885

== ENCOUNTER 2024-01-26 08:15 | Outpatient (REF) | payer OTHER, SELFPAY ==
--- NOTE | ~2024-01-26 | XR_ITS ---
EXAMINATION: XR ELBOW, RIGHT CLINICAL INFORMATION: Fracture. COMPARISON: Right elbow radiographs dated 01/22/2024. TECHNIQUE: AP, lateral, and bilateral oblique views of the right elbow. FINDINGS: Redemonstration of a mildly displaced radial head fracture with the fracture gap measuring up to 0.2 cm, similar in anatomic alignment when compared to the prior examination. No dislocation. Moderate elbow joint effusion. No abnormal soft tissue calcification. XR/XR elbow RT min 3V IMPRESSION: Mildly displaced radial head fracture in unchanged anatomic alignment. Moderate elbow joint effusion, similar when compared to the prior examination.
--- NOTE | ~2024-01-26 | CT_ITS ---
EXAMINATION: CT SCAN OF THE RIGHT ELBOW WITHOUT CONTRAST CLINICAL INFORMATION: Pain in the elbow. COMPARISON: X-rays of the right elbow 01/26/2024. TECHNIQUE: CT scan of the right elbow performed without contrast with reconstruction imaging performed at the acquisition workstation. This CT examination was performed using dose optimization techniques as appropriate, variously including the following: *Automated exposure control *Adjustment of mA and/or kV according to patient size (this includes techniques or standardized protocols for targeted exams where dose is matched to indication/reason for exam; i.e. extremities or head) *Use of iterative reconstruction technique FINDINGS: The exam is limited because of image-degrading motion artifact. There is a minimally depressed/displaced intra-articular fracture of the distal radius. There is approximately 1 mm of joint depression of the anterior portion of the articular surface related to the fracture. There is a sagittally-oriented fracture line and a possible additional coronally-oriented fracture line. Fracture gap measures up to 1.5 mm. There is a prominent joint effusion. No additional fractures. Overall alignment of the joint otherwise unremarkable. CT/CT elbow RT wo IV con IMPRESSION: Minimally depressed/displaced intra-articular fracture of the distal radius.
== END 2024-01-26 08:16 | disposition home or self-care (01) ==
LOC: HO.HOSX 08:15
PROVIDERS: Visit Provider Physician Assistant
DX: S52.121A Displaced fracture of head of right radius, initial encounter for closed fracture (principal); W19.XXXA Unspecified fall, initial encounter; Y93.74 Activity, frisbee; Y92.9 Unspecified place or not applicable; Y99.9 Unspecified external cause status
CPT/HCPCS: 24650; 73080; 73200; 99202

== ENCOUNTER 2024-01-26 08:50 | Outpatient (AMB) | payer OTHER, SELFPAY ==
--- NOTE | 2024-01-26 08:54 | A.OFFVIS_ITS ---
Intake Visit Reasons: FC- Closed fracture of head of right radius Intake Note: Danny is a 33 year old right hand dominant male who presents today for a evaluation of his right radial head fracture, DOI 01/23/24. Patient reports he was playing frisbee and tried to jump over a fence to grab the frisbee and fell on his right side. He was placed in a long-arm posterior splint but had to go back to the ER 2 hours later due to the swelling and the splint was removed. Pt was given a sling and wears it all the time except when sleeping. Pt states the pain comes and goes. Pt states he has been taking diazepam which has been helping. Allergies Seasonal Allergies Allergy (Verified 01/26/24 09:08) Runny Nose HPI HPI FC- Closed fracture of head of right radius: Details: Mr. Hilliard is a 33-year-old male who presents to the office today for evaluation of a right radial head fracture. He reports that on 01/22/2024 he is playing Frisbee and he fell landing on his entire right side. He is right-hand dominant. He did present to the ED on 01/22/2024 where x-rays were obtained and he was placed into a long-arm splint. [facility] Medical History Vertigo Surgical History History of inguinal hernia repair History of appendectomy Family History Mother No problems noted. Father Mental health disorder Substance use disorder Social History Housing: Apartment Alcohol intake: current Patient Tobacco Use Status: Current everyday Tobacco user Tobacco use type: Cigarette Cigarettes Per Day: 5 e-Cigarette/Vaping Use: Never Used Second Hand Smoke Exposure: Yes Substance Use Type: Marijuana service: No Current occupational status: employed Cognitive needs: No Hearing needs: No Vision needs: No Review of Systems Const All systems reviewed & are unremarkable except as noted in HPI and below Physical Exam Const General: cooperative, healthy appearing and no acute distress Resp Effort & Inspection: normal respiratory effort and able to speak in complete sentences Cardio Rate: regular rate Peripheral pulses: Peripheral pulses 2+ throughout GI Palpation (GI): Soft to palpation Skin Lesions: no lesions Rashes: no rashes Extrem Other: Right elbow mild edema. No ecchymosis. Tenderness to palpation over the radial head. No mechanical block with pronosupination. Able to flex and extend but is lacking about 40 degrees of extension. NVI. Office Procedures Fracture Care Fracture Billing Code: Fracture Billing Code Assessment & Plan Assessment & Plan (1) Right radial head fracture: Code(s): S52.121A - Displaced fracture of head of right radius, initial encounter for closed fracture Category: Medical Plan Mr. Hilliard is a 33-year-old right-hand dominant male who presents to the office today after sustaining a fall while playing [employer] on 01/22/2024. Presented to the emergency department where x-rays were obtained and he was found to have a right radial head fracture. He was placed in a long arm splint and instructed to follow up with orthopedics outpatient for further evaluation and treatment. Dr. Shell was available to see the patient with me in the office today and a collaborative treatment plan was created. The patient will be referred for a stat CT scan of the right elbow to further evaluate the extent of the fracture and its displacement. Should there be significant displacement affecting the articulating surface there is a potential for surgical intervention. This will further be discussed with the patient once CT scan is obtained. X-rays obtained in the office today reviewed by me Daria Walton PA-C and redemonstrate mildly displaced radial head fracture, right. Orders: Orders XR elbow RT min 3V Today M25.529 - Pain in unspecified elbow CT elbow RT wo IV con Today S52.121A - Displaced fracture of head of right radius, initial encounter for closed fracture Coding Level of Care Code New Pt Level 4 (23474) Diagnoses Right radial head fracture S52.121A CPT Codes Fracture Care - Fracture Billing Code: Fracture Billing Code ([id number])
== END 2024-01-26 10:08 | disposition home or self-care (01) ==
PROVIDERS: PCP Internal Medicine; Visit Provider Physician Assistant
DX: S52.121A Displaced fracture of head of right radius, initial encounter for closed fracture (principal)
CPT/HCPCS: 24650; 99204

== ENCOUNTER 2024-01-26 10:12 | Outpatient (REF) | payer OTHER, SELFPAY | END 2024-01-26 10:13 | disposition home or self-care (01) | LOC: HO.CT 10:12 | PROVIDERS: PCP Internal Medicine; Visit Provider Physician Assistant | DX: Z13.89 Encounter for screening for other disorder (principal) ==

== ENCOUNTER 2024-01-27 11:05 | Outpatient (AMB) | payer OTHER, SELFPAY ==
--- NOTE | 2024-01-27 11:10 | A.OFFVIS_ITS ---
Intake Visit Reasons: telehealth - CT scan review Allergies Seasonal Allergies Allergy (Verified 01/26/24 09:08) Runny Nose HPI HPI telehealth - CT scan review: Details: Mr. Hilliard 33-year-old male status post CT scan of the right elbow. Telehealth appointment today to review the outcome of the CT scan and to discuss the plan for further treatment. [facility] Medical History Vertigo Surgical History History of inguinal hernia repair History of appendectomy Family History Mother No problems noted. Father Mental health disorder Substance use disorder Social History Housing: Apartment Alcohol intake: current Patient Tobacco Use Status: Current everyday Tobacco user Tobacco use type: Cigarette Cigarettes Per Day: 5 e-Cigarette/Vaping Use: Never Used Second Hand Smoke Exposure: Yes Substance Use Type: Marijuana service: No Current occupational status: employed Cognitive needs: No Hearing needs: No Vision needs: No Review of Systems Const Details: Deferred due to telehealth Physical Exam Const General: cooperative, healthy appearing and no acute distress Resp Effort & Inspection: normal respiratory effort and able to speak in complete sentences Cardio Rate: regular rate Peripheral pulses: Peripheral pulses 2+ throughout GI Palpation (GI): Soft to palpation Skin Lesions: no lesions Rashes: no rashes Extrem Other: Deferred due to telehealth Telehealth Telehealth Telehealth Platform: Telephone Location of provider rendering services: practice address Location of patient: address on file Patient Identification confirmed using: Name, : Yes Telehealth method: voice only Patient verbally consented to treatment: Yes Patient verbally consented to billing insurance company: Yes Patient informed of any privacy concerns related to visit: Yes Minutes spent on Phone/Video with Pt.: 15 Assessment & Plan Assessment & Plan (1) Right radial head fracture: Code(s): S52.121A - Displaced fracture of head of right radius, initial encounter for closed fracture Category: Medical Plan Mr. Hilliard is a 33 yo right hand dominant male who presents for a telehealth appointment s/p CT scan of the right elbow. He reports he continues to have ongoing pain in the right elbow. Difficulty with range of motion. CT scan results are the following; Minimally depressed/displaced intra-articular fracture of the radial head. Imaging and plan was discussed with Dr. Shell who was available but did not speak with the patient. Due to the nature of the fracture being minimally displaced we will continue treating conservatively. I would like to see the patient back in 3 weeks with repeat x-rays sooner if needed. He can continue using the sling for comfort and encouraged him to come out for gentle range of motion of the elbow hand and wrist. Range of motion can include flexion, extension, pronation and supination. Should not push range of motion with pain. Patient understands and accepts. His follow up will be in 3 weeks, sooner if needed. Coding Level of Care Code Tele Est Pt Level 3 (86718) Diagnoses Right radial head fracture S52.121A
== END 2024-01-27 11:06 | disposition home or self-care (01) ==
LOC: HO.HOS 11:05
PROVIDERS: PCP Internal Medicine; Visit Provider Physician Assistant
DX: S52.121A Displaced fracture of head of right radius, initial encounter for closed fracture (principal)
CPT/HCPCS: 99213

== ENCOUNTER → 2024-01-27 11:05 | Outpatient (BNVA) | payer OTHER, SELFPAY | PROVIDERS: PCP Internal Medicine; Visit Provider Physician Assistant ==

== ENCOUNTER 2024-02-04 13:03 | Outpatient (REF) | payer OTHER, SELFPAY ==
--- NOTE | ~2024-02-04 | XR_ITS ---
EXAMINATION: XR ELBOW, RIGHT CLINICAL INFORMATION: Right elbow pain. COMPARISON: 01/26/2024 TECHNIQUE: AP, lateral, and oblique views of the right elbow. FINDINGS: Intra-articular fracture of the radial head is again noted with 1-2 mm of depression of the anterior fragment. Elbow joint effusion is again noted. Alignment is unchanged as compared to prior. No fractures. Joint space appears well preserved. XR/XR elbow RT min 3V IMPRESSION: Unchanged alignment of the intra-articular radial head fracture.
== END 2024-02-04 13:04 | disposition home or self-care (01) ==
LOC: HO.HOSX 13:03
PROVIDERS: PCP Internal Medicine; Visit Provider Physician Assistant
DX: S52.121D Displaced fracture of head of right radius, subsequent encounter for closed fracture with routine healing (principal)
CPT/HCPCS: 73080; 99212

== ENCOUNTER 2024-02-04 13:03 | Outpatient (AMB) | payer OTHER, SELFPAY ==
--- NOTE | 2024-02-04 13:34 | A.OFFVIS_ITS ---
Vital Signs 02/04/24 13:36 Height 5 ft 7 in Weight 132 lb BMI 20.7 Handedness Right Intake Visit Reasons: OV - Right radial head fx, DOI 01/23/24 Intake Note: Danny is a 33 year old right hand dominant who presents today with his sling for a follow up of his Right radial head fx, DOI 01/23/24. He states that he keeps hurting his arm and it is causing him a lot of pain. He states his pain is worse at night. Allergies Seasonal Allergies Allergy (Verified 02/04/24 13:37) Runny Nose HPI HPI OV - Right radial head fx, DOI 01/23/24: Details: 33-year-old right hand dominant male who presents in the office today for a follow-up of a right radial head fracture, which occurred on 01/23/2024 status post playing frisbee when he jumped landing on his right side. I last spoke to the patient on 01/27/2024 via telehealth. We agreed to continue to treat the fracture conservatively with the sling for comfort. He was to come out to work on gentle ROM of the elbow, hand, and wrist. Restrictions were given at that time. ? ? While in the office today, the patient reports that he keeps hitting the right upper extremity and states this is causing him an increase in pain. He also reports increased pain at night. ? [facility] Medical History Vertigo Surgical History History of inguinal hernia repair History of appendectomy Family History Mother No problems noted. Father Mental health disorder Substance use disorder Social History (Updated 02/04/24 @ 13:38 by Alfa Kapadia) Housing: Apartment Alcohol intake: current Patient Tobacco Use Status: Current everyday Tobacco user Tobacco use type: Cigarette Cigarettes Per Day: 5 e-Cigarette/Vaping Use: Never Used Second Hand Smoke Exposure: Yes Substance Use Type: Marijuana service: No Current occupational status: employed Current occupation: [employer])/ right hand dominant Cognitive needs: No Hearing needs: No Vision needs: No Review of Systems Const All systems reviewed & are unremarkable except as noted in HPI and below Physical Exam Vital Signs: BMI result Body Mass Index 20.7 Const General: cooperative, healthy appearing and no acute distress Resp Effort & Inspection: normal respiratory effort and able to speak in complete sentences Cardio Rate: regular rate Peripheral pulses: Peripheral pulses 2+ throughout GI Palpation (GI): Soft to palpation Skin Lesions: no lesions Rashes: no rashes Extrem Other: Right elbow mild edema. No ecchymosis. Tenderness to palpation over the radial head. No mechanical block with pronosupination. Able to flex and extend but is lacking about 40 degrees of extension. NVI. Office Procedures Casting/Splints Other Splint (posterior splint right upper extremity ) Procedure code (CPT) selection complete Assessment & Plan Assessment & Plan (1) Right radial head fracture: Code(s): S52.121A - Displaced fracture of head of right radius, initial encounter for closed fracture Category: Medical Plan Mr. Hilliard is a 33-year-old right hand dominant male who presents in the office today for a follow-up of a right radial head fracture, which occurred on 01/23/2024 status post playing frisbee when he jumped landing on his right side. I last spoke to the patient on 01/27/2024 via telehealth. We agreed to continue to treat the fracture conservatively with the sling for comfort. He was to come out to work on gentle ROM of the elbow, hand, and wrist. Restrictions were given at that time. ? ? While in the office today, the patient reports that he keeps hitting the right upper extremity and states this is causing him an increase in pain. He also reports increased pain at night.? ? The patient reports his main complaint is pain at night. He states he moves around a lot in his sleep causing him to wake up on occasion due to an increase in pain. He also reports occasional numbness and tingling in the right little finger. The patient would like to request a brace to wear at night. The office will supply a custom-made posterior splint that goes penitentiary up the humeral shaft and penitentiary down the forearm. He was educated that he is only to wear this at night and during the day he needs to work on gentle ROM. He demonstrates understanding and agrees with the plan. We discussed the role of medications including tramadol. However, he reports he has taken this in the past and it did not work well for him. Therefore, he will continue to take OTC medication for pain. The patient will do a telephone check in with me on Friday to let me know how he is doing. Otherwise, he will keep his normally scheduled follow-up on 02/20/2024, or sooner if needed. ? ? X-rays of the right elbow which were obtained while in the office today and were reviewed by me, Daria Walton PA-C, redemonstrated a right radial head fracture with no further displacement.? Orders: Orders XR elbow RT min 3V Today M25.529 - Pain in unspecified elbow Patient Instructions: Scribed by Jazzy Keller, medical and health services manager, for Daria Walton PA-C on 02/04/2024 at 1:06 pm, EST.? Coding Level of Care Code Global (92620) Diagnoses Right radial head fracture S52.121A
[2024-02-04 13:36] VITALS: BMI 20.7
== END 2024-02-04 14:21 | disposition home or self-care (01) ==
PROVIDERS: PCP Internal Medicine; Visit Provider Physician Assistant
DX: S52.121A Displaced fracture of head of right radius, initial encounter for closed fracture (principal)
CPT/HCPCS: 99024

== ENCOUNTER 2024-02-20 09:24 | Outpatient (REF) | payer OTHER, SELFPAY ==
--- NOTE | ~2024-02-20 | XR_ITS ---
EXAMINATION: XR ELBOW, RIGHT CLINICAL INFORMATION: Elbow pain. COMPARISON: 02/04/2024 TECHNIQUE: AP, lateral, and oblique views of the right elbow. FINDINGS: Minimally depressed radial head fracture (1 mm) appears unchanged as compared to prior. No new fractures are identified. Small joint effusion. Joint spaces appear well-preserved. Bone mineralization is normal. XR/XR elbow RT min 3V IMPRESSION: Unchanged minimally depressed radial head fracture.
== END 2024-02-20 09:25 | disposition home or self-care (01) ==
LOC: HO.HOSX 09:24
PROVIDERS: Visit Provider Physician Assistant
DX: S52.121A Displaced fracture of head of right radius, initial encounter for closed fracture (principal); W01.0XXA Fall on same level from slipping, tripping and stumbling without subsequent striking against object, initial encounter; Y93.33 Activity, BASE jumping; Y92.9 Unspecified place or not applicable; Y99.8 Other external cause status
CPT/HCPCS: 73080; 99212

== ENCOUNTER 2024-02-20 09:40 | Outpatient (AMB) | payer OTHER, SELFPAY ==
[2024-02-20 09:46] VITALS: BMI 20.7
--- NOTE | 2024-02-20 09:46 | MHC.OFFVIS ---
Vital Signs 02/20/24 09:46 Height 5 ft 7 in Weight 132 lb BMI 20.7 Intake Visit Reasons: OV - Right radial head fx, DOI 01/23/24 Intake Note: Danny is a 34 year old right hand dominant who presents today for a follow up of his Right radial head fx, DOI 01/23/24. He states he is doing better however is not able to fully extend or bend the right elbow. Patient reports his bone is clicking and cracking a lot with few episodes of sharp pain but is not taking anything for pain. Allergies Seasonal Allergies Allergy (Verified 02/20/24 09:46) Runny Nose HPI HPI OV - Right radial head fx, DOI 01/23/24: Details: 34-year-old?right hand dominant male who presents in the office today for a follow-up of a right radial head fracture, which occurred on 01/23/2024 status post playing frisbee when he jumped landing on his right side. I last saw the patient in the office on 02/04/24 when he was supplied with a posterior splint to sleep in. ?? ? While in the office today, the patient reports he is doing better today. However, states he is unable to fully extend or bend the right elbow. He claims his ?bone? is clicking and cracking ?a lot?. He reports a few episodes of sharp pain but has not taken anything to help relive this pain. ? [facility] Medical History Vertigo Surgical History History of inguinal hernia repair History of appendectomy Family History Mother No problems noted. Father Mental health disorder Substance use disorder Social History Housing: Apartment Alcohol intake: current Patient Tobacco Use Status: Current everyday Tobacco user Tobacco use type: Cigarette Cigarettes Per Day: 5 e-Cigarette/Vaping Use: Never Used Second Hand Smoke Exposure: Yes Substance Use Type: Marijuana service: No Current occupational status: employed Current occupation: [employer])/ right hand dominant Cognitive needs: No Hearing needs: No Vision needs: No Review of Systems Const All systems reviewed & are unremarkable except as noted in HPI and below Physical Exam Vital Signs: BMI result Body Mass Index 20.7 Const General: cooperative, healthy appearing and no acute distress Resp Effort & Inspection: normal respiratory effort and able to speak in complete sentences Cardio Rate: regular rate Peripheral pulses: Peripheral pulses 2+ throughout GI Palpation (GI): Soft to palpation Skin Lesions: no lesions Rashes: no rashes Extrem Other: Right elbow: Normal to inspection. No ecchymosis, erythema, or edema. No tenderness to palpation over the radial head. Able to achieve full flexion. Lacking about 20 degrees for full extension. Able to fully pronate and supinate with no pain. NVI.? Assessment & Plan Assessment & Plan (1) Right radial head fracture: Code(s): S52.121A - Displaced fracture of head of right radius, initial encounter for closed fracture Category: Medical Plan Mr. Hilliard is a 34-year-old?right hand dominant male who presents in the office today for a follow-up of a right radial head fracture, which occurred on 01/23/2024 status post playing frisbee when he jumped landing on his right side. I last saw the patient in the office on 02/04/24 when he was supplied with a posterior splint to sleep in. ?? ? While in the office today, the patient reports he is doing better today. However, states he is unable to fully extend or bend the right elbow. He claims his ?bone? is clicking and cracking ?a lot?. He reports a few episodes of sharp pain but has not taken anything to help relive this pain.? ? The patient will be referred to occupational therapy to work on ROM. Follow-up will be in six weeks for a ROM check, or sooner if needed. ? ? X-rays of the right elbow which were obtained while in the office today and were reviewed by me, Daria Walton PA-C, revealed routine healing of a right radial head fracture. ? Orders: Orders OT Evaluation and Treatment Today S52.121A - Displaced fracture of head of right radius, initial encounter for closed fracture XR elbow RT min 3V Today M25.529 - Pain in unspecified elbow Patient Instructions: Scribed by Jazzy Keller rn medical inpatient services, for Daria Walton PA-C on 02/20/2024 at 9:44 am, EST.? Coding Level of Care Code Global (92894) Diagnoses Right radial head fracture S52.121A
== END 2024-02-20 09:57 | disposition home or self-care (01) ==
PROVIDERS: PCP Internal Medicine; Visit Provider Physician Assistant
DX: S52.121A Displaced fracture of head of right radius, initial encounter for closed fracture (principal)
CPT/HCPCS: 99024

== ENCOUNTER 2024-03-15 14:00 | Outpatient (RCR) | payer OTHER, SELFPAY ==
--- NOTE | 2024-02-27 14:54 | MHC.OT.EP ---
[address] [phone] Occupational Therapy Plan of Care Patient Name: Danny Hilliard Jr Date of Evaluation: 02/27/24 Diagnosis: R RADIAL HEAD FRACTURE Pain Location: R ELBOW 1/10 AT REST; 4-5/10 WITH USE Pain Score: 1-5/10 Pain Scale Used: Numeric (0 - 10) Aggravating Factors: END RANGE FLEXION BRUSHING TEETH Alleviating Factors: NO LONGER TAKING PAIN MEDICATION, TAKING COLD SHOWERS Assessment: MR HILLIARD IS 5 WEEKS S/P R RADIAL HEAD FRACTURE. HE HAS EMERGING ABILITIES TO COMPLETE SIMPLE ADLs AND LIGHT IADLs. HE IS CURRENTLY OOW DUE TO INJURY AND REPORTS A 83% LIMITATION PER THE QUICK DASH ASSESSMENT. HE WOULD BENEFIT FROM ONGOING SKILLED OT TO ADDRESS ELBOW ROM, STRENGTH, EDEMA MANAGEMENT, AND RETURN TO WORK/ IADLs. Frequency and Duration: The patient will be seen 1X/WEEK FOR 6 WEEKS Short Term Goals: SEE BELOW Wood Type Finisher Goals: R ELBOW 10/150 R GROSS GRASP >70 POUNDS IND EDEMA MANAGEMENT STRATEGIES QUICK DASH <40% TOLERATE LIFT AND CARRY 15 LB BOX WITH <3/10 PAIN X3 MIN WITHIN CLINIC Treatment Plan: Therapeutic Exercise Therapeutic Activity Home Exercise Program Splinting Neuro Re-ed Patient Education Desensitization/Sensory Re-ed Edema Control ADL Training Ultrasound NMES Iontophoresis Paraffin Fluidotherapy MHP Cold Packs Joint Mobilization Soft Tissue Mobilization Kinesiotaping Other (see comments) Electronically Signed By: STEPHEN PRITCHARD OTR/L Please Sign and return to therapist. Thank you once again for your referral.
--- NOTE | 2024-03-15 15:17 | MHC.OT.DC ---
[address] [phone] F: [phone] Occupational Therapy Discharge Note Patient Name: Danny Hilliard Jr Provider: Daria Walton Diagnosis: R RADIAL HEAD FRACTURE Date of Evaluation: 02/27/24 Date of Discharge: 03/15/24 Treatments to Date: 4 Cancellations to Date: 0 No Shows to Date: 0 Discharge Status: Achieved Goals Improved Function Independent with HEP Discharge Summary: MR HILLIARD HAS PROGRESSED WELL WITH HIS OT GOALS. HE HAS BEEN MOTIVATED AND DEMO GOOD UNDERSTANDING OF HIS HEP. HE REPORTS GENERALLY LOW PAIN AND ABLE TO COMPLETE MOST ADLs/ IADLs. HIS ROM AND STRENGTH ARE FUNCTIONAL AND SUSPECT WILL CONTINUE TO IMPROVE. NO FURTHER OT WARRANTED - D/C OT SERVICES. Electronically Signed By: STEPHEN PRITCHARD OTR/L Reviewed/agree with student documentation: N/A Therapist: Please Sign and return to therapist, thank you for your referral.
== END 2024-03-19 13:30 | disposition home or self-care (01) ==
LOC: HO.OT 14:00
PROVIDERS: PCP Internal Medicine; Visit Provider Physician Assistant
DX: S52.121D Displaced fracture of head of right radius, subsequent encounter for closed fracture with routine healing (principal)
CPT/HCPCS: 97110; 97140; 97165

== ENCOUNTER 2024-04-02 08:55 | Outpatient (REF) | payer OTHER, SELFPAY ==
--- NOTE | ~2024-04-02 | XR_ITS ---
EXAMINATION: XR ELBOW, RIGHT CLINICAL INFORMATION: Pain in the elbow. Patient reports fall January. COMPARISON: Multiple prior examinations including most recent right elbow x-ray February 2024. TECHNIQUE: AP, lateral, and oblique views of the right elbow. FINDINGS: A minimally displaced intra-articular fracture radial head is redemonstrated. The fracture lines are less distinct compared with the prior examination indicative of interval partial healing. There is some lucency remaining. There is a small joint effusion similar to prior.. XR/XR elbow RT min 3V IMPRESSION: 1. Intra-articular radial head fracture with interval partial healing. 2. Small joint effusion similar to prior. Electronically signed by: Ramirez Mclain MD 04/08/2024 08:14 PM EDT
== END 2024-04-02 08:56 | disposition home or self-care (01) ==
LOC: HO.HOSX 08:55
PROVIDERS: PCP Internal Medicine; Visit Provider Physician Assistant
DX: M25.521 Pain in right elbow (principal); S52.121A Displaced fracture of head of right radius, initial encounter for closed fracture
CPT/HCPCS: 73080; 99212

== ENCOUNTER 2024-04-02 09:26 | Outpatient (AMB) | payer OTHER, SELFPAY ==
--- NOTE | 2024-04-02 09:29 | MHC.OFFVIS ---
Intake Visit Reasons: OV - right radial head fx, DOI 01/23/24 Intake Note: Danny is a 34 year old right hand dominant who presents today for a ROM check s/p Right radial head fx, DOI 01/23/24. He state he is doing well, he tends to have some pain in his elbow. He stopped wearing the sling about a month ago. Allergies Seasonal Allergies Allergy (Verified 04/02/24 09:40) Runny Nose HPI HPI OV - right radial head fx, DOI 01/23/24: Details: 34-year-old right hand dominant male who presents in the office today for a ROM check and follow-up of a right radial head fracture, which occurred on 01/23/2024 status post playing frisbee when he jumped landing on his right side. I last saw the patient in the office on 02/20/24 when he was referred to occupational therapy to work on ROM.? ? While in the office today, the patient states he is doing well but he tends to have some pain in the right elbow. ? [facility] Medical History Vertigo Surgical History History of inguinal hernia repair History of appendectomy Family History Mother No problems noted. 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 No ecchymosis, erythema, or edema. No tenderness to palpation over the radial head. Able to achieve full flexion. Lacking about 10 degrees for full extension. Able to fully pronate and supinate with no pain. NVI.? Assessment & Plan Assessment & Plan (1) Right radial head fracture: Code(s): S52.121A - Displaced fracture of head of right radius, initial encounter for closed fracture Category: Medical Plan Mr. Hilliard is a 34-year-old right hand dominant male who presents in the office today for a ROM check and follow-up of a right radial head fracture, which occurred on 01/23/2024 status post playing [employer] when he jumped landing on his right side. I last saw the patient in the office on 02/20/24 when he was referred to occupational therapy to work on ROM.? ? While in the office today, the patient states he is doing well but he tends to have some pain in the right elbow.? ? The patient may return to normal activities as tolerated. He will finish all sessions of physical therapy. Follow-up will be PRN, or sooner if needed. ? ? X-rays of the right elbow which were obtained while in the office today and were reviewed by me, Daria Walton PA-C, revealed routine healing.? Orders: Orders XR elbow RT min 3V Today M25.529 - Pain in unspecified elbow Patient Instructions: Scribed by Jazzy Keller medical delivery technician, for Daria Walton PA-C on 04/02/2024 at 9:55 am, EST.? Coding Level of Care Code Est Pt Level 3 (52929) Diagnoses Right radial head fracture S52.121A
== END 2024-04-02 10:03 | disposition home or self-care (01) ==
PROVIDERS: PCP Internal Medicine; Visit Provider Physician Assistant
DX: S52.121A Displaced fracture of head of right radius, initial encounter for closed fracture (principal)
CPT/HCPCS: 99024

== ENCOUNTER 2024-04-16 15:09 | Outpatient (REF) | payer OTHER, SELFPAY ==
[2024-04-19 10:57] LABS: TS Negative Control Passed; TS Panel A 0; TS Panel B 0; TS Positive Control Passed; TSpotTB Negative (Negative)
== END 2024-04-16 15:10 | disposition home or self-care (01) ==
LOC: HO.LAB 15:09
PROVIDERS: PCP Internal Medicine; Visit Provider Internal Medicine
DX: Z11.1 Encounter for screening for respiratory tuberculosis (principal)
CPT/HCPCS: 36415; 86481

== ENCOUNTER 2024-04-30 12:09 | Emergency (ER) | payer OTHER, SELFPAY ==
--- NOTE | 2024-04-30 | ECG_ITS ---
Test Reason : chest pain Blood Pressure : / mmHG Vent. Rate : 061 BPM Atrial Rate : 061 BPM P-R Int : 116 ms QRS Dur : 108 ms QT Int : 372 ms P-R-T Axes : 050 090 063 degrees QTc Int : 374 ms Sinus rhythm with marked sinus arrhythmia Rightward axis ST elevation, consider early repolarization, pericarditis, or injury Abnormal ECG When compared with ECG of 22-MAR-2014 20:23, ST elevation now present in Anterior leads Referred By: Generic ED Physician Electronically Signed By:AMELIE AZEVEDO MD
[2024-04-30 12:34] VITALS: BP 115/81; PULSE 59; RESP 14; TEMP 36.8; O2SAT 98; BMI 21.1
[2024-04-30] MEDS: Aspirin Enteric Coated 81 MG TABLET.DR 162 MG PO (12:40)
[2024-04-30 12:44] LABS: MANUAL DIFF FLAG NO
[2024-04-30 12:48] LABS: Basophils Percent Auto 0.4 % (0-2); Eosinophils Absolute Auto 0.3 X10*3/uL (0.0-0.4); Eosinophils Percent Auto 3.3 % (0-4); Hemoglobin 15.5 g/dl (14.0-18.0); Imm Gran Abs Auto 0.02 X10*3/uL (0.00-0.03); Imm Gran Pct Auto 0.3 % (0.0-0.4); Lymphocytes Absolute Auto 2.5 X10*3/uL (1.2-4.9); Lymphocytes Percent Auto 31.1 % (20-40); Mean Corpuscular HGB Conc 35.2 g/dl (31.0-36.0); Mean Corpuscular Volume 90.9 fL (80.0-98.0); Mean Platelet Volume 11.2 fL (9.4-12.4); Monocytes Absolute Auto 0.6 X10*3/uL (0.1-1.2); Monocytes Percent Auto 7.2 % (2-11); Neutrophils Absolute Auto 4.6 x10*3/uL (2.0-8.3); Neutrophils Percent Auto 57.7 % (45-73); Platelet Count 185 X10*3/uL (160-400); Red Blood Count 4.84 X10*6/uL (4.60-5.80); White Blood Count 7.9 X10*3/uL (4.8-10.8)
[2024-04-30 12:59] LABS: Anion Gap 10 (12-20); Blood Urea Nitrogen 9 mg/dL (9-16); Calcium 9.8 mg/dL (8.4-10.2); Carbon Dioxide 30 mmol/L (22-29); Chloride 106 mmol/L (96-108); Creatinine Clr Calc Pharmacy 110.9; Estimated Glomerular Filt Rate > 60; Glucose Random 91 mg/dL (60-115); Sodium 142 mmol/L (135-145)
--- NOTE | 2024-04-30 13:09 | PC.NURSE ---
patient denies any chest tightness or arm tingling at this time. resting comfortably on stretcher awaiting dispo.
[2024-04-30 13:16] LABS: Troponin-I High Sensitivity < 2.7 ng/L (<3.5-35.0)
[2024-04-30 14:21] VITALS: BP 104/51; PULSE 55; RESP 9; O2SAT 98
[2024-04-30 16:08] LABS: Troponin-I High Sensitivity < 2.7 ng/L (<3.5-35.0)
--- NOTE | 2024-04-30 16:15 | ED_ITS ---
HPI - Chest Pain General Chief Complaint: Chest Pain Stated Complaint: Chest tightness, numbness both arms Time Seen by Provider: 04/30/24 12:22 Source: patient Mode of arrival: ambulatory Limitations: no limitations History of Present Illness ED Provider: Dr. Perkins HPI narrative: Patient is a 34yo male who presents with one week of of intermittent chest pain not associated with exertion. He denies fever. He does state that it radiates to his arms. No cardiac history Related Data Previous Rx's ?Medication ?Instructions ?Recorded naproxen 500 mg tablet (Naprosyn) 500 mg PO BID #20 tabs 04/30/24 Allergies Allergy/AdvReac Type Severity Reaction Status Date / Time Seasonal Allergies Allergy Runny Nose Verified 04/30/24 12:35 Review of Systems 2 Review of Systems: Yes all other systems are reviewed and are negative Neurologic: Denies Sensory deficit (Neuro) [facility] Past Medical History Medical History Vertigo Surgical History History of inguinal hernia repair History of appendectomy Family History Family History Mother No problems noted. 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 Cognitive needs: No Hearing needs: No Vision needs: No Physical Exam 2 Vital Signs: Vital Signs: Last Vital Signs Temp 98.2 F 04/30/24 12:34 Pulse 55 04/30/24 14:21 Resp 9 L 04/30/24 14:21 BP 104/51 L 04/30/24 14:21 Pulse Ox 98 04/30/24 14:21 O2 Del Method Room Air 04/30/24 14:21 BMI result Body Mass Index 21.1 Const: Other: thin anxious male in no acute distress General: healthy appearing Nutritional Appearance: average body habitus Orientation/consciousness: oriented to person and patient oriented x3 L imitations: no limitations HEENT: Head: Yes normal to inspection Ears: external ears normal General nose exam: Normal external nose present Mouth: Normal oral and palatal mucosa present and oropharynx normal Throat: Yes posterior oropharynx normal Eyes: General: appearance normal, both eyes and all related structures Neck: Other: supple Neck: Yes normal visual inspection Chest: Chest palpation & inspection: normal inspection of the chest Resp: Auscultation: clear to auscultation bilaterally Cardio: Jugular venous distension: no JVD Rate: regular rate Rhythm: r egular rhythm Heart sounds: S1 normal heart sound present and S2 normal heart sound present GI: Inspection: Yes normal to inspection Palpation (GI): Soft to palpation, nontender and No hepatosplenomegaly present Auscultation: normal bowel sounds : General: Yes no CVA tenderness Back/Spine/Pelvis: Back: no CVA tenderness Skin: General skin exam: no rashes or lesions noted Neuro: General: oriented to person and patient oriented x3 Cranial nerves: Yes CN's II-XII intact bilaterally Motor exam (neuro): 5/5 motor strength present throughout Sensory Exam: No Sensory deficit (Neuro) Extrem: General: Yes normal to inspection Psych: Appearance: grossly normal Course Reevaluation(s) Reevaluation #1: EKG showed elevated st segments and pointy Ts, but no fever no evidence of pericarditis will dc on nsaids Time: 16:35 Medications Administered Discontinued Medications Generic Name Dose Route Start Last Admin Trade Name Jason PRN Reason Stop Dose Admin Aspirin 162 mg 04/30/24 12:32 04/30/24 12:40 Aspirin Enteric Coated 81 Mg Tablet.Dr PO 04/30/24 12:33 162 mg ONCE ONE Administration Lorazepam 1 mg 04/30/24 16:01 04/30/24 16:29 Lorazepam 1 Mg Tablet PO 04/30/24 16:02 1 mg ONCE ONE Administration Medical Decision Making Differential Diagnosis Differential Diagnoses: The differential diagnosis associated with the presentation includes (cardiac ischemia, pericarditis, anxiety) Admission/Observation Consideration of admission/observation: Escalation of care including admission/observation considered (upon arrival admission was considered) Lab Data 04/30/24 12:41 04/30/24 12:41 Labs: Lab Results 04/30/24 04/30/24 Range/Units 12:41 15:34 WBC 7.9 (4.8-10.8) X10*3/uL RBC 4.84 (4.60-5.80) X10*6/uL Hgb 15.5 (14.0-18.0) g/dl Hct 44.0 (42.0-52.0) % MCV 90.9 (80.0-98.0) fL MCH 32.0 (27.0-33.0) pg MCHC 35.2 (31.0-36.0) g/dl RDW 13.0 (11.0-16.0) % Plt Count 185 (160-400) X10*3/uL MPV 11.2 (9.4-12.4) fL Immature Gran % (Auto) 0.3 (0.0-0.4) % Neut % (Auto) 57.7 (45-73) % Lymph % (Auto) 31.1 (20-40) % [place] % (Auto) 7.2 (2-11) % Eos % (Auto) 3.3 (0-4) % Baso % (Auto) 0.4 (0-2) % Lymph # (Auto) 2.5 (1.2-4.9) X10*3/uL [place] # (Auto) 0.6 (0.1-1.2) X10*3/uL Eos # (Auto) 0.3 (0.0-0.4) X10*3/uL Baso # (Auto) 0.0 (0.0-0.2) X10*3/uL Abs Immat Gran (auto) 0.02 (0.00-0.03) X10*3/uL Absolute Neuts (auto) 4.6 (2.0-8.3) x10*3/uL Absolute Nucleated RBC 0.000 (0.0-0.012) X10*3/uL Nucleated RBC % (auto) 0.0 (0.0-0.2) /100WBC Sodium 142 (135-145) mmol/L Potassium 4.0 (3.3-5.1) mmol/L Chloride 106 (96-108) mmol/L Carbon Dioxide 30 H (22-29) mmol/L Anion Gap 10 L (12-20) BUN 9 (9-16) mg/dL Creatinine 0.82 (0.5-1.4) mg/dL Estim Creat Clear Calc 110.9 Estimated GFR > 60 Random Glucose 91 (60-115) mg/dL Calcium 9.8 (8.4-10.2) mg/dL Troponin I High Sens < 2.7 < 2.7 (<3.5-35.0) ng/L Independent Interpretation I performed an independent interpretation of an: EKG (sinus rate 60, st segment elevation, peaked Ts) Tests considered The following testing was considered but not selected: CXR considered but no fever, clear lungs, normal oxygen Prescription Management I considered prescription management with: Antibiotic no evidence of infection Discharge Plan Discharge Clinical Impression: Chest pain Patient Disposition: Home, Self-Care Instructions: Chest Pain (ED) Prescriptions: New naproxen [Naprosyn] 500 mg tablet 500 mg PO BID Qty: 20 0RF Referrals: Ignacio Hurley MD [Primary Care Provider] - 1 week Print Language: Guatemalan
[2024-04-30] MEDS: LORazepam 1 MG TABLET PO (16:29)
--- NOTE | 2024-04-30 16:47 | ECG_ITS ---
Test Reason : repeat Blood Pressure : / mmHG Vent. Rate : 053 BPM Atrial Rate : 053 BPM P-R Int : 120 ms QRS Dur : 096 ms QT Int : 390 ms P-R-T Axes : 060 090 062 degrees QTc Int : 365 ms Sinus bradycardia Rightward axis Early repolarization Borderline ECG No previous ECGs available Referred By: Toan Perkins Electronically Signed By:TRAVIS MATTA
[2024-04-30 16:57] VITALS: BP 94/60; PULSE 67; RESP 16; TEMP -17.7; TEMP 0; O2SAT 98
== END 2024-04-30 17:00 | disposition home or self-care (01) ==
PROVIDERS: Emergency Provider Emergency Medicine; PCP Internal Medicine
DX: R07.9 Chest pain, unspecified (principal)
CPT/HCPCS: 36415; 80048; 84484; 85025; 93005; 99283; 99284

== ENCOUNTER → 2024-04-30 12:13 | Outpatient (BNV) | payer OTHER, SELFPAY | PROVIDERS: Emergency Provider Emergency Medicine; PCP Internal Medicine; Visit Provider Internal Medicine Cardiovascular Disease | DX: R00.1 Bradycardia, unspecified (principal) | CPT/HCPCS: 93010 ==

== ENCOUNTER 2024-07-18 00:20 | Emergency (ER) | payer OTHER, SELFPAY ==
--- NOTE | ~2024-07-18 | CT_ITS ---
CLINICAL HISTORY: diffuse abd pain, more L abd pain CT abdomen and pelvis with contrast Comparison: CT/MI/SR - CT ABDOMEN PELVIS W IV CON - 08/31/23 19:48 EST Findings: No consolidation or effusion. The gallbladder and solid organs are within normal limits. No hydronephrosis or hydroureter. No bowel obstruction, pneumoperitoneum, or pneumatosis. Pelvic contents unremarkable. No bladder wall thickening. Nonvisualization of the appendix. No acute fracture visualized. IMPRESSION: 1. No acute inflammatory process identified within the abdomen or pelvis. The appendix is not identified. This document has been electronically signed by: Kashif Lazaro MD on 07/18/2024 04:13:41
[2024-07-18 00:25] VITALS: BP 100/60; PULSE 76; RESP 19; TEMP 36.7; O2SAT 98; BMI 20.5
--- NOTE | 2024-07-18 01:48 | ED.GENADULT ---
HPI - General Adult General Chief complaint: General Medical Stated complaint: left side pain/back pain Time Seen by Provider: 07/18/24 01:33 Source: patient Mode of arrival: ambulatory Limitations: no limitations History of Present Illness ED Provider: Dr. Kristy Wang HPI narrative: Patient comes to the emergency room complaining of left flank pain for 1 week. However, patient states that it is not necessarily only left flank pain, states that the pain radiates towards the right back, then around to the abdomen and flanks bilaterally. Patient complaining of nausea and vomiting x1. Patient has been alternating Tylenol and Motrin to help with his symptoms. Patient denies fever chills, denies hematuria or dysuria Related Data Previous Rx's ?Medication ?Instructions ?Recorded naproxen 500 mg tablet (Naprosyn) 500 mg PO BID #20 tabs 04/30/24 cyclobenzaprine 10 mg tablet 10 mg PO TID PRN muscle spasm #7 07/18/24 tabs ibuprofen 600 mg tablet 600 mg PO Q8H PRN fever or pain 07/18/24 #14 tabs Allergies Allergy/AdvReac Type Severity Reaction Status Date / Time Seasonal Allergies Allergy Runny Nose Verified 07/18/24 00:25 Review of Systems Review of Systems: Constitutional : No Weight loss, No Fever, No Chills, No Night Sweats, No Fatigue, No Malaise ENT/Mouth : No Hearing loss, No Ear Pain, No Nasal Congestion, No Sinus Pain, No Hoarseness, No sore throat, No Rhinorrhea, No Swallowing Difficulty Eyes: No Eye Pain, No Swelling, No Redness, No Foreign Body, No Discharge, No Vision Changes Cardiovascular : No Chest Pain, No SOB, No Dyspnea on Exertion, No Orthopnea, No Edema, No Palpitations Respiratory : No Cough, No Sputum, No Wheezing, No Smoke Exposure, No Dyspnea Gastrointestinal : No Nausea, No Vomiting, No Diarrhea, No Constipation, No abdominal Pain, No Hematochezia, No Melena Genitourinary : no irregular bleeding, No Dysuria, No Urinary Frequency, No Hematuria, No Urinary Incontinence, No Urgency, complaining of bilateral flank pain radiating towards both sides of the abdomen., No Urinary Flow Changes, No Hesitancy Musculoskeletal : No joint pain, No Myalgias, No Joint Swelling Skin : No Skin Lesions, No rash Neuro : No Weakness, No Numbness, No Paresthesias, No Loss of Consciousness, No Dizziness, No Headache Psych : No Anxiety/Panic, No Depression, No SI/HI/AH/VH, No Social Issues, Heme/Lymph: No Bruising, No Bleeding,No Lymphadenopathy Endocrine : No Polyuria, No Polydipsia, No Temperature Intolerance [facility] Past Medical History Medical History Vertigo Surgical History History of inguinal hernia repair History of appendectomy Family History Family History Mother No problems noted. 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 Oriented X3. No acute distress. Eyes: Pupils equal, round and reactive to light. ENT: Pharynx normal. Neck: Normal inspection. Neck supple. No lymph nodes noted. No crepitus CVS: Normal heart rate and rhythm. Pulses normal. Normal S1 and S2 Respiratory: No respiratory distress. Breath sounds normal. No Wheezing. No rales Abdomen: Soft , exaggerated response to very mild palpation in the abdomen. Skin: Skin warm and dry. Normal skin color. Normal skin turgor. Extremities: No lower extremity edema. No Lacerations. No Rash Neuro: Oriented X 3. No motor deficit. No sensory deficit. Moving all extremities. No slurred speech. CN 2 through 12 grossly intact Psych: calm, cooperative, anxious Medications Administered Discontinued Medications Generic Name Dose Route Start Last Admin Trade Name Jason PRN Reason Stop Dose Admin Ketorolac Tromethamine 30 mg 07/18/24 01:41 07/18/24 02:52 Ketorolac Tromethamine 30 Mg/Ml Vial IVPUSH 07/18/24 01:42 30 mg ONCE ONE Administration Ondansetron HCl 4 mg 07/18/24 01:41 07/18/24 02:52 Ondansetron Hcl 4 Mg/2 Ml Vial IVPUSH 07/18/24 01:42 4 mg ONCE ONE Administration Medical Decision Making Medical Decision Making [facility] Narrative: My interpretation of labs: Patient's hematology within normal limits, chemistry normal, BUN and creatinine normal, UA negative for UTI, CT scan negative for kidney stones. However, the appendix was not visualized. Patient has no clear signs of appendicitis. Patient has pain mostly in the back and bilateral flanks especially on the left Patient is source of pain likely musculoskeletal I discussed the CT findings with the patient. Overall patient feeling much better after the above-mentioned medication. Differential Diagnosis Differential Diagnoses: The differential diagnosis associated with the presentation includes (Pyelonephritis, ureterolithiasis, musculoskeletal pain) Admission/Observation Consideration of admission/observation: Escalation of care including admission/observation considered (And patient's initial presentation, observation was considered) Lab Data [facility] Lab Attestation statement: I reviewed the patient's lab results. 07/18/24 01:51 07/18/24 01:51 Labs: Lab Results 07/18/24 07/18/24 Range/Units 01:51 03:49 WBC 6.7 (4.8-10.8) X10*3/uL RBC 4.71 (4.60-5.80) X10*6/uL Hgb 14.4 (14.0-18.0) g/dl Hct 40.3 L (42.0-52.0) % MCV 85.6 (80.0-98.0) fL MCH 30.6 (27.0-33.0) pg MCHC 35.7 (31.0-36.0) g/dl RDW 12.0 (11.0-16.0) % Plt Count 175 (160-400) X10*3/uL MPV 10.7 (9.4-12.4) fL Immature Gran % (Auto) 0.3 (0.0-0.4) % Neut % (Auto) 48.4 (45-73) % Lymph % (Auto) 39.9 (20-40) % [place] % (Auto) 7.9 (2-11) % Eos % (Auto) 3.1 (0-4) % Baso % (Auto) 0.4 (0-2) % Lymph # (Auto) 2.7 (1.2-4.9) X10*3/uL [place] # (Auto) 0.5 (0.1-1.2) X10*3/uL Eos # (Auto) 0.2 (0.0-0.4) X10*3/uL Baso # (Auto) 0.0 (0.0-0.2) X10*3/uL Abs Immat Gran (auto) 0.02 (0.00-0.03) X10*3/uL Absolute Neuts (auto) 3.2 (2.0-8.3) x10*3/uL Absolute Nucleated RBC 0.000 (0.0-0.012) X10*3/uL Nucleated RBC % (auto) 0.0 (0.0-0.2) /100WBC Sodium 141 (135-145) mmol/L Potassium 4.1 (3.3-5.1) mmol/L Chloride 109 H (96-108) mmol/L Carbon Dioxide 24 (22-29) mmol/L Anion Gap 12 (12-20) BUN 11 (9-16) mg/dL Creatinine 0.83 (0.5-1.4) mg/dL Estim Creat Clear Calc 106.5 Estimated GFR > 60 Random Glucose 98 (60-115) mg/dL Calcium 9.3 (8.4-10.2) mg/dL Total Bilirubin 0.3 (0.0-1.0) mg/dL AST 26 (5-37) U/L ALT 16 (0-40) U/L Alkaline Phosphatase 75 (39-117) U/L Total Protein 7.3 (6.5-8.0) g/dL Albumin 4.1 (3.5-5.0) g/dL Urine Color Yellow Urine Appearance Clear Urine pH 6.5 (5.0-9.0) Ur Specific [place] >= 1.030 H (1.005-1.025) Urine Protein Trace (Neg-Trace) mg/dL Urine Glucose (UA) Negative (Negative) mg/dL Urine Ketones Negative (Negative) mg/dL Urine Blood Negative (Negative) Urine Nitrite Negative (Negative) Ur Leukocyte Esterase Negative (Negative) Independent Interpretation I performed an independent interpretation of an: CT Scan Radiology Impression Discussion of test interpretation with radiology: I have reviewed the radiologist's reading. Radiologist Impression: No consolidation or effusion. The gallbladder and solid organs are within normal limits. No hydronephrosis or hydroureter. No bowel obstruction, pneumoperitoneum, or pneumatosis. Pelvic contents unremarkable. No bladder wall thickening. Nonvisualization of the appendix. No acute fracture visualized. IMPRESSION: 1. No acute inflammatory process identified within the abdomen or pelvis. The appendix is not identified. Critical Care Time Critical Care Time Critical Care Time: Yes Total Critical Care Time: 45 Attestation: I have personally provided critical care time. Time includes review of lab data, radiology results, discussion with consultants, and monitoring for potential decompensation. Intervention performed as documented. Discharge Plan Discharge Clinical Impression: Back pain, Flank pain Patient Disposition: Home, Self-Care Instructions: Flank Pain (ED), Back Pain (ED) Additional Instructions: Please follow-up with your primary care physician tomorrow. If you have any worsening or new symptoms, please return to the emergency room or call 911 Prescriptions: New cyclobenzaprine 10 mg tablet 10 mg PO TID PRN (Reason: muscle spasm) Qty: 7 0RF ibuprofen 600 mg tablet 600 mg PO Q8H PRN (Reason: fever or pain) Qty: 14 0RF No Action naproxen [Naprosyn] 500 mg tablet 500 mg PO BID Qty: 20 0RF Print Language: Sami
[2024-07-18 01:56] LABS: MANUAL DIFF FLAG NO
[2024-07-18 01:57] LABS: Basophils Percent Auto 0.4 % (0-2); Eosinophils Absolute Auto 0.2 X10*3/uL (0.0-0.4); Eosinophils Percent Auto 3.1 % (0-4); Hematocrit 40.3 % (42.0-52.0); Hemoglobin 14.4 g/dl (14.0-18.0); Imm Gran Abs Auto 0.02 X10*3/uL (0.00-0.03); Imm Gran Pct Auto 0.3 % (0.0-0.4); Lymphocytes Absolute Auto 2.7 X10*3/uL (1.2-4.9); Lymphocytes Percent Auto 39.9 % (20-40); Mean Corpuscular HGB Conc 35.7 g/dl (31.0-36.0); Mean Corpuscular Hemoglobin 30.6 pg (27.0-33.0); Mean Corpuscular Volume 85.6 fL (80.0-98.0); Mean Platelet Volume 10.7 fL (9.4-12.4); Monocytes Absolute Auto 0.5 X10*3/uL (0.1-1.2); Monocytes Percent Auto 7.9 % (2-11); Neutrophils Absolute Auto 3.2 x10*3/uL (2.0-8.3); Neutrophils Percent Auto 48.4 % (45-73); Platelet Count 175 X10*3/uL (160-400); Red Blood Count 4.71 X10*6/uL (4.60-5.80); White Blood Count 6.7 X10*3/uL (4.8-10.8)
[2024-07-18 02:26] LABS: Alanine Aminotransferase 16 U/L (0-40); Albumin Level 4.1 g/dL (3.5-5.0); Anion Gap 12 (12-20); Aspartate Amino Transferase 26 U/L (5-37); Bilirubin Total 0.3 mg/dL (0.0-1.0); Blood Urea Nitrogen 11 mg/dL (9-16); Calcium 9.3 mg/dL (8.4-10.2); Carbon Dioxide 24 mmol/L (22-29); Chloride 109 mmol/L (96-108); Creatinine Clr Calc Pharmacy 106.5; Estimated Glomerular Filt Rate > 60; Glucose Random 98 mg/dL (60-115); Potassium 4.1 mmol/L (3.3-5.1); Sodium 141 mmol/L (135-145); Total Protein 7.3 g/dL (6.5-8.0)
[2024-07-18 02:31] LABS: Alkaline Phosphatase 75 U/L (39-117)
[2024-07-18] MEDS: Ketorolac Tromethamine 30 MG/ML VIAL IVPUSH (02:52)
[2024-07-18] MEDS: ondansetron HCL 4 MG/2 ML VIAL IVPUSH (02:52)
[2024-07-18 03:43] VITALS: BP 99/63; PULSE 60; RESP 18; TEMP 36.6; O2SAT 99
--- NOTE | 2024-07-18 03:44 | MHC.EDTECH ---
Patient ambulated to the bathroom with a steady gait,urine sample obtained and sent to lab,vitals taken,call iglesias in reach
[2024-07-18 03:54] LABS: Appearance Urine Clear; Color Urine Yellow; Glucose Urine UA Negative (Negative); Leukocyte Esterase Urine Negative (Negative); Nitrite Urine Negative (Negative); PH 6.5 (5.0-9.0); Specific Gravity - Urine >= 1.030 (1.005-1.025); Urine Blood Negative (Negative); Urine Ketones Negative (Negative); Urine Protein Trace mg/dL (Neg-Trace)
[2024-07-18 04:38] VITALS: BP 99/63; PULSE 60; RESP 18; TEMP 36.6; O2SAT 99
== END 2024-07-18 04:38 | disposition home or self-care (01) ==
PROVIDERS: Emergency Provider Emergency Medicine
DX: R10.2 Pelvic and perineal pain (principal); M54.50 Low back pain, unspecified; R11.2 Nausea with vomiting, unspecified; F17.210 Nicotine dependence, cigarettes, uncomplicated; Z79.899 Other long term (current) drug therapy
CPT/HCPCS: 36415; 74177; 80053; 81003; 85025; 96374; 96375; 99284; J1885; J2405

== ENCOUNTER → 2024-07-18 01:39 | Outpatient (BNV) | payer OTHER, SELFPAY | PROVIDERS: Emergency Provider Emergency Medicine; Visit Provider Radiology Diagnostic Radiology | DX: R10.84 Generalized abdominal pain (principal) | CPT/HCPCS: 74177 ==

== ENCOUNTER 2024-09-14 09:45 | Outpatient (REF) | payer OTHER, SELFPAY ==
--- OUTSIDE RECORDS SUMMARY | 2024-09-15 11:22 | XMS_ITS | Clinical Summary ---
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 Role Phone Unavailable Primary Care Provider Unavailabl e Allergies No known active allergies Social History Tobacco Use Types Packs/Day Years Used Date Smoking Tobacco: Never Assessed Sex and Gender Information Value Date Recorded Sex Assigned at Male 05/20/2022 10:19 AM EDT Legal Sex Male 10:19 AM EDT Gender Identity Male 11/14/2022 1:04 PM EDT Sexual Orientation Choose not to disclose 2022 1:04 PM EDT Plan of Treatment Health Maintenance Due Date Last Done Comments Depression Screening 1991 HIV Screening 1991 SDOH Screening 1991 Hepatitis B Vaccines (4 of 4 - 4-dose series) 04/21/1996 04/05/1996, 01/30/1996, 12/31/1995 Alcohol/Substance Use Screening 2003 Tobacco Screening 2003 Family Planning (PISQ) 2006 Hepatitis C Screening 2009 DTaP/Tdap/Td Vaccines (6 - Tdap) 08/22/2015 08/22/2005, 03/20/1995, 06/13/1993, Additional history exists COVID-19 Vaccine ( season) 2024 Influenza Vaccine (#1) 2024 07/27/2012 Zoster Vaccines (1 of 2) 2041 RSV Patients and Patients Aged 60 years or older (1 - 1-dose 75+ series) 2066 HIB Vaccines Completed 06/04/1993, 05/22, 02/02/1992, Additional history exists IPV Vaccines Completed 02/20/1995, 05/21, 02/02/1992, Additional history exists Meningococcal Vaccine Completed 10/14/2008 HPV Vaccines Aged Out No longer eligi ble based on patient's age to complete this topic Hepatitis A Vaccines Aged Out No long er eligible based on patient's age to complete this topic Pneumococcal Vaccine: Pediatrics (0 to 5 Years) and At-Risk Patients (6 to 49) Years) Aged Out No longer eligible based on patient's age to complete this topic RSV under 20 months Aged Out No longe r eligible based on patient's age to complete this topic Rotavirus Vaccines Aged Out No longer eligible based on patient's age to complete this topic Insurance [facility] STAND[facility]
== END 2024-09-14 09:46 | disposition home or self-care (01) ==
LOC: HO.HOSX 09:45
PROVIDERS: Visit Provider Physician Assistant
DX: Z13.89 Encounter for screening for other disorder (principal)

== ENCOUNTER 2024-10-21 08:28 | Outpatient (REF) | payer OTHER, SELFPAY ==
--- OUTSIDE RECORDS SUMMARY | 2024-10-22 08:54 | XMS_ITS | Clinical Summary ---
Author Organization [employer] Address [address] [place] [address] Care Team Providers Care Traffic Administrator Name Role Phone Unavailable Primary Care Provider [...] patient's age to complete this topic Insurance [facility] STANDARD
== END 2024-10-21 08:29 | disposition home or self-care (01) ==
LOC: HO.HOSX 08:28
PROVIDERS: Visit Provider Physician Assistant
DX: Z13.89 Encounter for screening for other disorder (principal)

== ENCOUNTER 2025-01-26 18:42 | Emergency (ER) | payer OTHER, SELFPAY ==
[2025-01-26 18:58] VITALS: BP 107/64; PULSE 93; RESP 20; TEMP 37.9; O2SAT 96; BMI 20.4
--- NOTE | 2025-01-26 18:58 | ED_ITS ---
HPI - General Adult General Chief complaint: Upper Respiratory Symptoms Stated complaint: bodyaches,nausea Related Data Previous Rx's ?Medication ?Instructions ?Recorded naproxen 500 mg tablet (Naprosyn) 500 mg PO BID #20 ta bs 04/30/24 cyclobenzaprine 10 mg tablet 10 mg PO TID PRN muscle s pasm #7 07/18/24 tabs ibuprofen 600 mg tablet 600 mg PO Q8H PRN fever or p ain 07/18/24 #14 tabs Allergies Allergy/AdvReac Type Severity Reaction Status Date / Time Seasonal Allergies Allergy Runny Nose Verified 01/26/25 18:59 [facility] Past Medical History Medical History Vertigo Surgical History History of inguinal hernia repair History of appendectomy Family History Family History Mother No problems noted. 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 RME assessment and note performed by: Jasmin Mcnally PA-C This is a 4-phut-jad-male, with no known medical problems, who presents to the ER with complaints of body aches, sore throat, cough, fevers, ear pain since yesterday. posterior oral pharynx is erythematous 1 exudate noted on left. Plan: strep swab/viral swabs Reevaluation(s) Reevaluation #1: Patient left without completing treatment. Discharge Plan Discharge Clinical Impression: Cough Patient Disposition: Left W/O Completing Treatment Prescriptions: No Action naproxen [Naprosyn] 500 mg tablet 500 mg PO BID Qty: 20 0RF cyclobenzaprine 10 mg tablet 10 mg PO TID PRN (Reason: muscle spasm) Qty: 7 0RF ibuprofen 600 mg tablet 600 mg PO Q8H PRN (Reason: fever or pain) Qty: 14 0RF Discharge Date/Time: 01/26/25 21:37
--- NOTE | 2025-01-26 21:36 | PC.NURSE ---
called multiple times in [place] with no answer
== END 2025-01-26 21:37 | disposition left against medical advice (07) ==
PROVIDERS: Emergency Provider Emergency Medicine
DX: M79.10 Myalgia, unspecified site (principal); R11.0 Nausea; R05.9 Cough, unspecified; F17.210 Nicotine dependence, cigarettes, uncomplicated
CPT/HCPCS: 99281

== ENCOUNTER 2025-04-01 15:33 | Outpatient (AMB) | payer OTHER, SELFPAY ==
--- NOTE | 2025-04-01 15:36 | MHC.PC.OV ---
Vital Signs 04/01/25 15:37 Height 5 ft 7 in Weight 125 lb 6 oz BMI 19.6 BP 110/62 Blood Pressure Location Lt brachial Position Sitting Respiration 18 Pulse 82 Pulse Source Pulse Oximeter Temp 97.1 F Temp Source Temporal Artery Scan Pulse Oximetry (%) 97 Oxygen Delivery Method Room Air Intake Visit Reasons: JARED from Mei/JIMMY Central Melt Specialist Required: No Accompanied by: Self / Same As Patient Allergies Seasonal Allergies Allergy (Verified 04/01/25 16:05) Runny Nose Medication List - Last Reconciled 04/01/25 by MEGAN Bautista loratadine 10 mg PO DAILY triamcinolone acetonide 0.1% 1 appl topical BID Tobacco use date assessed: 04/01/25 Dental Screening Dental Screen Date: 04/01/25 Did you have a dental visit in the last 12 months?: No Did you have a dental problem in the last 6 months where you did not have access to dental care?: No Was dental information given to patient?: No HPI JARED from Mei/JIMMY HPI Details Presenting for Annual physical and transfer for Dr. Hurley Dentist: not up to date Eye: up to date Snellen: Right: Left: Corrected vision: yes, glasses STI screening:ordered placed Colonoscopy:n/a Pap Smer:n/a PHQ-9: Flu: no COVID: no Tdap: refused Diet:reports that he overeats but does not gain weight Exercise:rarely The patient is a 35-year-old male presenting for a wellness visit and management of balanitis. The patient reports a history of balanitis with persistent red spots, indicating possible ongoing inflammation. He has not received any prescribed treatment and has self-managed the condition. The patient has considered circumcision as a potential solution but is concerned about potential complications such as loss of sensation and scarring due to his age. The patient reports tobacco use, including both cigarettes and marijuana, and experiences dyspnea, which he attributes to smoking. He has attempted to reduce cigarette consumption by limiting purchases. The patient has astigmatism, requiring glasses for reading and sometimes for distance vision, depending on the day. The patient reports infrequent bowel movements, sometimes going several days without a bowel movement, despite a high intake of water. He describes his diet as poor, eating large quantities of food but rarely exercising due to logistical and financial constraints. [facility] Medical History Vertigo Surgical History History of inguinal hernia repair History of appendectomy Family History Mother No problems noted. Father Mental health disorder Substance use disorder Social History Housing: Apartment Alcohol intake: current Alcohol intake frequency: holidays/special occasions only Patient Tobacco Use Status: Current everyday Tobacco user Tobacco use type: Cigarette Cigarettes Per Day: 5 e-Cigarette/Vaping Use: Never Used Second Hand Smoke Exposure: Yes Substance Use Type: Marijuana service: No Current occupational status: employed Current occupation: [employer])/ right hand dominant Cognitive needs: No Hearing needs: No Vision needs: No Questionnaire PHQ-9 Over the last 2 weeks, how often have you been bothered by any of the following problems? 1. Little interest or pleasure in doing things: not at all 2. Feeling down, depressed, or hopeless: not at all 3. Trouble falling or staying asleep, or sleeping too much: not at all 4. Feeling tired or having little energy: not at all 5. Poor appetite or overeating: not at all 6. Feeling bad about yourself - or that you are a failure or have let yourself or your family down: not at all 7. Trouble concentrating on things, such as reading the newspaper or watching television: not at all 8. Moving or speaking so slowly that other people could have noticed. Or the opposite - being so fidgety or restless that you have been moving around a lot more than usual: not at all 9. Thoughts that you would be better off or of hurting yourself in some way: not at all Total score: 0 Depression Screening Interpretation: Negative Depression Screening Done: Yes 58344 - PHQ-9 Billing: Yes Source: Developed by Drs. Jesus Mcpherson, Norma Dejesus, Morales Dior and colleagues, with an educational gianluca from [employer]. Thrive Questionnaire Date Thrive assessed: 04/01/25 I am a: Patient What is your living situation today?: I do not have a steady places to live I choose not to answer this question Within the past 12 months, did the food you bought not last and you didn't have the money to get more?: I choose not to answer this question Within the past 12 months, did you worry whether your food would run out before you got money to buy more?: I choose not to answer this question Do you have trouble paying for medicines?: Yes Do you have trouble getting transportation to medical appointments?: Yes Do you have trouble paying your heating and electricity bill?: I choose not to answer this question Do you have trouble taking care of your child, family member or friend?: I choose not to answer this question Do you have trouble with day-to-day activities such as bathing, preparing meals, shopping, managing finances, etc.?: I choose not to answer this question Are you currently unemployed and looking for a job?: I choose not to answer this question Are you interested in more education?: I choose not to answer this question Please select the resources that you would like help with: None Currently or been in a relationship where the following occur: I choose not to answer THRIVE Score: 2 AUDIT C Alcohol Use Questionnaire (AUDIT-C) 1. How often do you have a drink containing alcohol?: Never Total Score: 0 FIONA-7 AMB Questionnaire FOINA-7 Date FIONA - 7 assessed: 04/01/25 Feeling nervous, anxious, or on edge: 0 = Not at all Not being able to stop or control worryin = Not at all Worrying too much about different things: 0 = Not at all Trouble relaxin = Not at all Being so restless that it is hard to sit still: 0 = Not at all Becoming easily annoyed or irritable: 0 = Not at all Feeling afraid as if something awful might happen: 0 = Not at all Total FIONA-7 score (0-4 normal; 5-9 mild; 10-14 moderate; 15-21 severe): 0 Source: Developed by Drs. Jesus Mcpherson, Norma Dejesus, Morales Dior and colleagues, with an educational gianluca from [employer]. FIONA-7 Assessment Billing FIONA-7 Assessment Tool: FIONA-7 Assessment 59441 Review of Systems Const Denies headache(s) Eyes Denies loss of vision ENT Denies vertigo, Denies dizziness, Denies headache(s) and Denies sore throat Card Denies chest pain, Denies leg edema, Denies lightheadedness and Reports dyspnea (When smokes) Resp Denies cough, Denies hemoptysis, Reports dyspnea (When smokes) and Denies wheezing GI Denies abdominal pain, Denies melena, Denies constipation, Denies diarrhea and Denies vomiting Denies dysuria, Denies urinary frequency, Denies urinary urgency and Reports other (Recurrent balanitis) Musc Denies arthralgias, Denies joint swelling, Denies numbness and Denies tingling Neuro Denies Abnormal speech present, Denies behavioral changes, Denies vertigo, Denies dizziness, Denies headache(s), Denies loss of vision, Denies memory loss, Denies numbness and Denies tingling Psych Denies anxiety, Denies behavioral changes, Denies depression, Denies memory loss and Denies panic attacks Roldan/Lymph Denies easy bleeding and Denies easy bruising Aller/Immun Denies wheezing Physical exam (Primary Care) Vital Signs: Last Vital Signs Temp 97.1 F 04/01/25 15:37 Pulse 82 04/01/25 15:37 Resp 18 04/01/25 15:37 BP 110/62 04/01/25 15:37 Pulse Ox 97 04/01/25 15:37 Oxygen Delivery Method Room Air 04/01/25 15:37 BMI result Body Mass Index 19.6 Tobacco/Smoking Status: Tobacco use Status Tobacco use date assessed 04/01/25 04/01/25 15:37 Patient Tobacco Use Status Current everyday Tobacco 04/01/25 15:37 Tobacco use type Cigarette 04/01/25 15:37 e-Cigarette/Vaping Use Never Used 04/01/25 15:37 PHQ-9: PHQ-9 Score PHQ-9: Total score 0 04/01/25 16:41 Depression Screening Interpretation: Negative Thrive Assessment: Date of Thrive Assessment Date Thrive assessed 04/01/25 04/01/25 15:37 Currently or been in a relationship where the following occur: I choose not to answer Const General: healthy appearing, no acute distress, alert and awake Nutritional Appearance: well nourished Orientation/consciousness: oriented to person, oriented to place and oriented to time HENMT Ears: TM's normal bilaterally General nose exam: Normal nasal mucous membranes and turbinates present Eyes Conjunctivae: conjunctivae normal Sclerae: sclerae normal Pupils: Equal, round and reactive pupils present Neck Neck: Yes no lymphadenopathy and Yes no JVD Thyroid: Thyroid normal Carotids: no bruits Resp Effort & Inspection: normal respiratory effort and not tachypneic Auscultation: no crackles, no rales, no rhonchi and no wheezes Cardio Rate: regular rate Rhythm: regular rhythm Heart sounds: no murmurs and normal S1 and S2 GI Palpation (GI): Soft to palpation, nontender, no hepatomegaly and no splenomegaly Auscultation: normal bowel sounds General: Yes no CVA tenderness Penis: uncircumcised and erythematous Back/Spine/Pelvis Back: no CVA tenderness Skin General skin exam: no rashes or lesions noted and dry skin Neuro General: oriented to person, oriented to place and oriented to time Cranial nerves: Yes CN's II-XII intact bilaterally and Yes Equal, round and reactive pupils present Speech: No Abnormal speech present Gait exam (Neuro): Normal gait present Motor exam (neuro): no tremor noted Deep tendon reflexes (DTR's): Right triceps reflex intensity grade: 2+, Left triceps reflex intensity grade: 2+, Rt Biceps (C5, C6): 2+, Left biceps reflex intensity grade: 2+, Right brachioradialis reflex intensity grade: 2+, Left brachioradialis reflex intensity grade: 2+, Right patellar reflex intensity grade: 2+ and Left patellar reflex intensity grade: 2+ Extrem Right upper extremity: full ROM Left upper extremity: full ROM Right lower extremity: full ROM; no edema Left lower extremity: full ROM; no edema Psych Mental Status: mental status grossly normal Speech and movement: Normal speech and movement present Affect: normal affect Attitude: cooperative Thought process: Normal thought process present Coding Level of Care Code Est Pt Prev Care 18-39y(54048) Diagnoses Physical exam Z00.00 Screening for STD (sexually transmitted disease) Z11.3 Acne, unspecified acne type L70.9 Acne type: unspecified acne Balanitis N48.1 Smoker F17.200 Dyspnea, unspecified type R06.00 Dyspnea type: unspecified Additional Codes FIONA-7 Assessment Billing - FIONA-7 Assessment Tool: FIONA-7 Assessment 60401 ( ([id number]) PHQ-9 - 59373 - PHQ-9 Billing: Yes ([id number]) Time Spent (min) 36 Assessment & Plan Assessment & Plan (1) Physical exam: Code(s): Z00.00 - Encounter for general adult medical examination without abnormal findings Category: Medical Plan: Preventative guidelines reviewed with the patient. The patient is up-to-date with his eye exams. No dental exam in a while, reports that he has verified of the dentist. Due for tetanus, refused administration. Labs ordered, will advise (2) Screening for STD (sexually transmitted disease): Code(s): Z11.3 - Encounter for screening for infections with a predominantly sexual mode of transmission Category: Medical Plan: STDs tests ordered (3) Acne: Code(s): L70.9 - Acne, unspecified Category: Medical Qualifiers: Acne type: unspecified acne Qualified Code(s): L70.9 - Acne, unspecified Plan: Recurrent acne refractory to traditional treatments. We will refer to Dermatology for further evaluation (4) Balanitis: Code(s): N48.1 - Balanitis Category: Medical Plan: Recurrent. The patient is considering circumcision and would like to be referred to Urology for evaluation (5) Smoker: Code(s): F17.200 - Nicotine dependence, unspecified, uncomplicated Category: Social Hx Plan: Encouraged cessation (6) Dyspnea: Code(s): R06.00 - Dyspnea, unspecified Category: Medical Qualifiers: Dyspnea type: unspecified Qualified Code(s): R06.00 - Dyspnea, unspecified Plan: Associated with smoking, encouraged smoking cessation. Consider ordering an inhaler if continues. Orders: Orders Lipid Panel 04/01/25 J32.9 - Chronic sinusitis, unspecified, Z00.00 - Encounter for general adult medical examination without abnormal findings UA CC w/rflx Micro + Cult 04/01/25 J32.9 - Chronic sinusitis, unspecified, Z00.00 - Encounter for general adult medical examination without abnormal findings TSH reflex Free T4 04/01/25 J32.9 - Chronic sinusitis, unspecified, Z00.00 - Encounter for general adult medical examination without abnormal findings Vitamin D 25-OH Total 04/01/25 J32.9 - Chronic sinusitis, unspecified, Z00.00 - Encounter for general adult medical examination without abnormal findings Complete Blood Count Auto Diff 04/01/25 J32.9 - Chronic sinusitis, unspecified, Z00.00 - Encounter for general adult medical examination without abnormal findings Comprehensive [place]. Panel Fast 04/01/25 J32.9 - Chronic sinusitis, unspecified, Z00.00 - Encounter for general adult medical examination without abnormal findings Syphilis Screen 04/01/25 Z11.3 - Encounter for screening for infections with a predominantly sexual mode of transmission HIV Ab/Ag 04/01/25 Z11.3 - Encounter for screening for infections with a predominantly sexual mode of transmission CT NG by PCR Urine 04/01/25 Z11.3 - Encounter for screening for infections with a predominantly sexual mode of transmission Referrals Dermatology Referral L70.9 - Acne, unspecified Urology Referral N48.1 - Balanitis Medications: New triamcinolone acetonide 0.1% 1 appl topical BID 80 grams 3RF
[2025-04-01 15:37] VITALS: BP 110/62; PULSE 82; RESP 18; TEMP 36.2; O2SAT 97; BMI 19.6
--- OUTSIDE RECORDS SUMMARY | 2025-04-01 17:43 | XMS_ITS | Clinical Summary ---
Author Organization [employer] Address [address] [facility] [address] [place] [address] Care Team Providers Care Home Health Care Respiratory Therapist Name Role Phone Unavailable Primary Care Provider [...] 1991 HIV Screening 1991 SDOH Screening 1991 Disability Screening 1991 Hepatitis B Vaccines (4 of 4 - 4-dose series) 04/21/1996 04/05/1996, 01/30/1996, 12/31/1995 Alcohol/Substance Use Screening 2003 Tobacco Screening 2003 Family Planning (PISQ) 2006 HPV Vaccines (1 - Male 3-dose series) 2006 Hepatitis C Screening 2009 DTaP/Tdap/Td Vaccines (6 - Tdap) 08/22/2015 08/22/2005, 03/20/1995, 06/13/1993, Additional history exists COVID-19 Vaccine ( - season) 2025 Influenza Vaccine (#1) 2025 07/27/2012 Zoster Vaccines (1 of 2) 2041 RSV Patients and Patients Aged 60 years or older (1 - 1-dose 75+ series) 2066 HIB Vaccines Completed 06/04/1993, 05/22, 02/02/1992, Additional history exists IPV Vaccines Completed 02/20/1995, 05/21, 02/02/1992, Additional history exists Meningococcal Vaccine Completed 10/14/2008 Hepatitis A Vaccines Aged Out No long er eligible based on patient's age to complete this topic Meningococcal B Vaccine Aged Out No l onger eligible based on patient's age to complete this topic Pneumococcal Vaccine: Pediatrics (0 to 5 Years) and At-Risk Patients (6 to 49) Years Aged Out No longer eligible based on patient's age to complete this topic RSV under 20 months Aged Out No longe r eligible based on patient's age to complete this topic Rotavirus Vaccines Aged Out No longer eligible based on patient's age to complete this topic Insurance [facility] STANDARD
== END 2025-04-01 16:40 | disposition home or self-care (01) ==
LOC: HO.HMCH 15:35
DX: Z00.00 Encounter for general adult medical examination without abnormal findings (principal); Z11.3 Encounter for screening for infections with a predominantly sexual mode of transmission; L70.9 Acne, unspecified; N48.1 Balanitis; F17.200 Nicotine dependence, unspecified, uncomplicated; R06.00 Dyspnea, unspecified

== ENCOUNTER → 2025-04-01 15:33 | Outpatient (BNVA) | payer OTHER, SELFPAY | DX: Z00.00 Encounter for general adult medical examination without abnormal findings (principal); R06.00 Dyspnea, unspecified; L70.9 Acne, unspecified; N48.1 Balanitis; J32.9 Chronic sinusitis, unspecified; F17.210 Nicotine dependence, cigarettes, uncomplicated | CPT/HCPCS: 96127; 99395 ==

== ENCOUNTER 2025-04-04 12:46 | Outpatient (REF) | payer OTHER, SELFPAY ==
[2025-04-04 13:02] LABS: MANUAL DIFF FLAG NO
[2025-04-04 13:49] LABS: Hematocrit 45.5 % (42.0-52.0); Hemoglobin 15.8 g/dl (14.0-18.0); Imm Gran Abs Auto 0.02 X10*3/uL (0.00-0.03); Imm Gran Pct Auto 0.3 % (0.0-0.4); Lymphocytes Absolute Auto 2.2 X10*3/uL (1.2-4.9); Mean Corpuscular HGB Conc 34.7 g/dl (31.0-36.0); Mean Corpuscular Hemoglobin 30.6 pg (27.0-33.0); Mean Corpuscular Volume 88.0 fL (80.0-98.0); NRBC Abs Auto 0.000 X10*3/uL (0.0-0.012); NRBC Pct Auto 0.0 /100WBC (0.0-0.2); Platelet Count 203 X10*3/uL (160-400); Red Blood Count 5.17 X10*6/uL (4.60-5.80); White Blood Count 5.8 X10*3/uL (4.8-10.8)
[2025-04-04 14:32] LABS: Appearance Urine Clear; Glucose Urine UA Negative (Negative); PH 5.5 (5.0-9.0); Specific Gravity - Urine 1.020 (1.005-1.025)
[2025-04-04 14:43] LABS: Alanine Aminotransferase 23 U/L (0-40); Albumin Level 4.8 g/dL (3.5-5.0); Alkaline Phosphatase 73 U/L (39-117); Anion Gap 11 (12-20); Aspartate Amino Transferase 23 U/L (5-37); Blood Urea Nitrogen 9 mg/dL (9-16); Calcium 9.7 mg/dL (8.4-10.2); Carbon Dioxide 28 mmol/L (22-29); Chloride 107 mmol/L (96-108); Cholesterol 197 mg/dL (<200); Estimated Glomerular Filt Rate > 60; HDL Cholesterol 49 mg/dL (>40); Potassium 4.3 mmol/L (3.3-5.1); Sodium 142 mmol/L (135-145); Total Protein 7.7 g/dL (6.5-8.0); Triglycerides 84 mg/dL (<150)
--- OUTSIDE RECORDS SUMMARY | 2025-04-04 17:31 | XMS_ITS | Clinical Summary ---
Author Organization [employer] Address [address] [facility] [address] [place] [address] Care Team Providers Care Charge Master Coordinator Name Role Phone Unavailable Primary Care Provider [...] patient's age to complete this topic Insurance [facility] STANDARD
[2025-04-05 08:29] LABS: HIV Num 1 0.06 S/CO (0.00-0.99)
[2025-04-05 09:05] LABS: Syphilis Screen Nonreactive (Nonreactive)
== END 2025-04-04 12:47 | disposition home or self-care (01) ==
LOC: HO.LAB 12:46
DX: Z00.00 Encounter for general adult medical examination without abnormal findings (principal); J32.9 Chronic sinusitis, unspecified; Z11.3 Encounter for screening for infections with a predominantly sexual mode of transmission; Z11.4 Encounter for screening for human immunodeficiency virus [HIV]
CPT/HCPCS: 80053; 80061; 81003; 82306; 84443; 85025; 86780; 87389

== ENCOUNTER 2025-04-05 13:03 | Outpatient (REF) | payer OTHER, SELFPAY ==
[2025-04-05 16:30] LABS: CT PCR Urine NOT DETECTED (Not Detect.); NG PCR Urine NOT DETECTED (Not Detect.)
--- OUTSIDE RECORDS SUMMARY | 2025-04-05 17:01 | XMS_ITS | Clinical Summary ---
Author Organization [employer] Address [address] [facility] [address] [place] [address] Care Team Providers Care Farrowing Worker Name Role Phone Unavailable Primary Care Provider [...] patient's age to complete this topic Insurance [facility] STANDARD
== END 2025-04-05 13:04 | disposition home or self-care (01) ==
LOC: HO.LAB 13:03
DX: Z11.3 Encounter for screening for infections with a predominantly sexual mode of transmission (principal)
CPT/HCPCS: 87491; 87591

== ENCOUNTER 2025-05-30 13:22 | Outpatient (REF) | payer OTHER, SELFPAY ==
--- OUTSIDE RECORDS SUMMARY | 2025-05-30 15:27 | XMS_ITS | Clinical Summary ---
Author Organization [employer] Address [address] [facility] [address] [place] [address] Care Team Providers Care Simplex Operator Name Role Phone Unavailable Primary Care Provider [...] patient's age to complete this topic Insurance [facility] STANDARD
[2025-06-02 11:48] LABS: TS Negative Control Passed; TS Panel A 0; TS Panel B 0; TS Positive Control Passed; TSpotTB Negative (Negative)
== END 2025-05-30 13:23 | disposition home or self-care (01) ==
LOC: HO.LAB 13:22
DX: Z11.1 Encounter for screening for respiratory tuberculosis (principal)
CPT/HCPCS: 36415; 86481